=== PATIENT | female | born 1940 | race Caucasian/White ===

== ENCOUNTER → 2017-09-07 | Outpatient (CLI) | payer BC ==
[~2017-09-07] MED LIST: CALCTAB5 PO; COEN75CA PO; DIPH25CA37 PO; EVEN1000 PO; MAGN400T6 PO; MULT-506 PO; NUTR1000 PO
--- NOTE | 2017-09-07 15:58 | MAMMOGRAPHY REPORT ---
BILATERAL DIGITAL SCREENING MAMMOGRAM WITH CAD: 09/07/2017 TECHNIQUE: Current study was also evaluated with a Computer Aided Detection (CAD) system. Bilateral CC and MLO views were obtained. COMPARISON: Comparison is made to exams dated: 09/05/2016 mammogram, 09/03/2015 mammogram, 08/27/2014 mammogram, 08/22/2013 mammogram, 08/21/2012 mammogram, and 06/20/2010 mammogram - [facility]. BREAST COMPOSITION: There are scattered areas of fibroglandular density in both breasts. FINDINGS: No suspicious masses, calcifications, or areas of architectural distortion are noted in ei ther breast. There has been no significant interval change compared to prior exams. IMPRESSION: ACR BI-RADS CATEGORY 1: NEGATIVE There is no mammographic evidence of malignancy. A 1 year screening mammogram is recommended. The pa tient will receive written notification of the results. Approximately 10% of breast cancers are not detected with mammography. A negative mammographic report should not delay biopsy if a clinically suggestive mass is present. Julia Jackman M.D. ah/:09/07/2017 15:31:44 Medical Illustrator: Heather NAQVI(Sabina)(M), [facility] letter sent: Normal 1/2 BI-RADS Code: ACR BI-RADS Category 1: Negative
== END | disposition home or self-care (01) ==
LOC: C.MAMM 12:45
PROVIDERS: ATTEND Obstetrics & Gynecology
DX: Z12.31 Encounter for screening mammogram for malignant neoplasm of breast (principal)

== ENCOUNTER → 2017-11-22 | Outpatient (CLI) | payer BC | END | disposition home or self-care (01) | LOC: C.PAPS 09:36 | PROVIDERS: ATTEND Obstetrics & Gynecology | DX: Z12.4 Encounter for screening for malignant neoplasm of cervix (principal) ==

== ENCOUNTER → 2017-12-04 | Outpatient (CLI) | payer BC ==
[2017-12-04 15:11] LABS: ALBUMIN 3.5 gm/dl (3.4-5.0); ALT/SGPT 23 U/L (12-78); AST/SGOT 22 U/L (15-37); BLOOD UREA NITROGEN 17 mg/dl (7-18); CALCIUM 8.8 mg/dl (8.5-10.1); CARBON DIOXIDE 28 mmol/L (21-32); CREATININE 0.88 mg/dl (0.60-1.20); GLUCOSE 84 mg/dl (70-99); POTASSIUM 3.9 mmol/L (3.5-5.1); SODIUM 140 mmol/L (136-145)
[2017-12-04 15:22] LABS: ALKALINE PHOSPHATASE 74 U/L (45-117); CHOLESTEROL 213 mg/dl (0-200); LDL CHOLESTEROL CALCULATED 126 mg/dl; TOTAL PROTEIN 7.3 gm/dl (6.4-8.2)
== END | disposition home or self-care (01) ==
LOC: C.LAB 09:31
PROVIDERS: ATTEND Internal Medicine
DX: Z00.00 Encounter for general adult medical examination without abnormal findings (principal); E78.5 Hyperlipidemia, unspecified

== ENCOUNTER 2019-01-10 11:13 | Inpatient (IN) ==
[2019-01-10] MEDS ORDERED: OXYCODONE HCL IR 5 MG TAB (IMMEDIATE RELEASE) PO STA (11:40)
--- NOTE | 2019-01-10 11:47 | Emergency Department Note ---
ED Provider Note CHIEF COMPLAINT: Left wrist injury HISTORY OF PRESENT ILLNESS: This 78-year-old female presents the ER with chief complaint of left wrist injury. The patient states that she was walking her dog and another dog started barking and her dog took off and spun her around and she fell injuring her left wrist and scraping her right hand and right knee. The patient is able to walk without difficulty. The patient is right- hand dominant. She came immediately to the hospital. She has not taken anything for pain. The patient has not had anything to eat since last evening. She has no medical problems. She is not on any blood thinners. Patient has seen [facility] in the past for a shoulder dislocation. REVIEW OF SYSTEMS: 6 system review was performed and was negative unless stated otherwise in history of present illness. PMH: The patient is healthy; shoulder dislocation SOCIAL HISTORY: Patient lives with her GENERAL: Patient is alert oriented in no acute distress. EYES: PERRLA. EOMs intact. Funduscopic exam unremarkable. EARS: Canals clear. TMs without fluid level noted. NECK: Supple, no lymphadenopathy noted. No carotid bruits noted. LUNGS: Clear auscultation without wheezes rales or rhonchi. CARDIAC: Regular rate and rhythm without murmur. Pulses is full and equal throughout. ABDOMEN: Positive bowel sounds all 4 quadrants. Soft, nontender to palpation without organomegaly or masses. NEURO:Cranial nerves two through 12 intact. Cerebellar function intact with [id number]. Fine motor intact with alternating finger motions. RIGHT HAND: No gross bony deformity noted. There is superficial abrasions noted over the palmar aspect. Patient is able to move her fingers without difficulty. RIGHT KNEE: No gross bony deformity noted. No erythema or edema noted. Superficial abrasion noted over the patella without any deep cuts noted. No active bleeding. The wound looks clean. LEFT WRIST: Deformity noted of the distal forearm. The patient is able to move her fingers without difficulty. Sensation is intact. The patient has ecchymosis and swelling over the entire wrist joint. EMERGENCY DEPARTMENT COURSE: The patient was placed n.p.o. The patient was given OxyIR 5 mg p.o. X-ray of the left wrist was ordered interpreted by the radiologist and myself. DIAGNOSTICS:XR wrist LT min 3V routine CLINICAL HISTORY: fall, left wrist pain COMPARISON: None FINDINGS: Note is made of an acute comminuted mildly displaced distal left radial fracture with intra-articular extension. There is no acute distal left ulnar fracture. Carpal bones are intact. A ring on the fourth finger is present. IMPRESSION: Acute comminuted mildly displaced distal left radial fracture with intra-articular extension. Electronically signed by: Shyam Parker M.D. 01/10/2019 12:18 PM Dictated: 01/10/19 1216 Transcribed: 01/10/19 1216 The patient was informed of the findings. The patient was independently evaluated by Dr. Guevara who agrees with treatment plan. Dr. Torres was consulted and wanted me to order a CT of the wrist. CT of the wrist was ordered interpreted by the radiologist. DIAGNOSTICS:CT OF THE LEFT WRIST WITHOUT CONTRAST CLINICAL HISTORY: Fall/fracture radius. COMPARISON STUDY: Left wrist radiographs performed earlier today. TECHNIQUE: Axial images of the left wrist were obtained without IV contrast. Sagittal and coronal reconstructions were performed as well as 3-D volume rendering. Study was performed utilizing automated exposure control for dose reduction and according to ALARA principles. FINDINGS: Note is made of an acute comminuted mildly displaced distal right radial fracture with intra-articular extension and volar tilt of the distal component. Fracture is displaced up to 6 mm. No carpal bone fracture is noted. There is no acute fracture of the distal left ulna. Soft tissue edema/ hemorrhage is noted. No metacarpal fracture is identified. No fractures are identified within visualized portions of the phalanges. IMPRESSION: Acute comminuted mildly displaced distal left radial fracture with intra-articular extension and volar tilt of the distal component. Electronically signed by: Shyam Parker M.D. Patient was informed of the findings. Dr. Torres will be taking the patient to the OR therefore preop testing was obtained. This includes CBC and differential , metabolic profile, coags, chest x-ray and EKG. labs are reviewed and were unremarkable. The patient was taken to the OR. DIAGNOSIS: Comminuted displaced left distal radius fracture Attending Attestation: Shaye Guevara MD independently saw and evaluated this patient and agree with history and physical is otherwise documented by the physician gynecological assistant. See their note for full details. Impression & Plan Fracture of radius Past Med/Surg History Medical History No significant medical problems No significant past surgical history Normal colonoscopy Surgical History History of colonoscopy History of root canal procedure Family History Other Family history non-contributory Social History marital status: Current Living Situation: Spouse current occupational status: retired Feels Safe at Home: Yes Smoking Status: Never smoker Hx Alcohol Use: Yes (1 small glass of wine a week) Preferred Language: Georgian Communication Ability: Effective Visual Impairment: No Limitations Hearing Ability: Normal Results & Data Vital Signs Vital Signs - 24 hr 01/10/19 11:16 01/10/19 13:17 01/10/19 15:12 Temperature 36.3 C L Temperature Source Oral Sepsis Recent Fever Within 48 Hours No Sepsis New/Unexplained Change in Mental Status No Sepsis Action Taken by Nursing No Action Required Pulse Rate 73 Pulse Rate [Finger] 66 91 H Respiratory Rate 16 17 16 Blood Pressure 160/80 H Blood Pressure [Right Arm] 175/89 H 198/106 H Blood Pressure Mean 106 Blood Pressure Mean [Right Arm] 117 136 Blood Pressure Position [Right Arm] Sitting Pulse Oximetry 97 98 99 Oxygen Delivery Method Room Air Room Air Laboratory Data Result diagrams: 01/10/19 13:55 01/10/19 13:55 Lab Results 01/10/19 01/10/19 01/10/19 Range/Units 13:55 13:55 13:55 WBC 9.09 (4.8-10.8) K/uL RBC 4.81 (4.2-5.4) M/uL Hgb 15.2 (12.0-16.0) g/dL Hct 44.4 (37-47) % MCV 92.3 (80-100) fL MCH 31.6 (25-34) pg MCHC 34.2 (32-36) g/dL RDW Std Deviation 42.4 (36.4-46.3) fL RDW Coeff of Maurilio 12.6 (11.5-14.5) % Plt Count 223 (130-400) K/uL MPV 10.2 (7.4-10.4) fL Immature Gran % (Auto) 0.1 % Neut % (Auto) 71.8 % Lymph % (Auto) 22.1 % Estill % (Auto) 5.2 % Eos % (Auto) 0.4 % Baso % (Auto) 0.4 % Immature Gran # (Auto) 0.01 (0.00-0.02) K/uL Neut # (Auto) 6.52 H (1.4-6.5) K/uL Lymph # (Auto) 2.01 (1.2-3.4) K/uL Estill # (Auto) 0.47 (0.11-0.59) K/uL Eos # (Auto) 0.04 (0-0.5) K/uL Baso # (Auto) 0.04 (0-0.2) K/uL PT Cancelled INR Cancelled Sodium 139 (136-145) mmol/L Potassium 4.1 (3.5-5.1) mmol/L Chloride 108 H (98-107) mmol/L Carbon Dioxide 25 (21-32) mmol/L Anion Gap 6.0 (3-11) BUN 18 (7-18) mg/dl Creatinine 1.06 (0.6-1.2) mg/dl Est Cr Clr Drug Dosing 45.0 ml/min Est GFR ( Amer) 59.1 Est GFR (Non-Af Amer) 51.0 BUN/Creatinine Ratio 16.7 (10-20) Glucose 88 (70-99) mg/dl Calcium 9.0 (8.5-10.1) mg/dl Total Bilirubin 0.7 (0.2-1) mg/dl AST 31 (15-37) U/L ALT 29 (12-78) U/L Alkaline Phosphatase 93 (45-117) U/L Total Protein 8.2 (6.4-8.2) gm/dl Albumin 3.9 (3.4-5.0) gm/dl Globulin 4.3 H (2.5-4.0) gm/dl Albumin/Globulin Ratio 0.9 (0.9-2) Specimen Hemolysis 01/10/19 Range/Units 14:37 WBC (4.8-10.8) K/uL RBC (4.2-5.4) M/uL Hgb (12.0-16.0) g/dL Hct (37-47) % MCV (80-100) fL MCH (25-34) pg MCHC (32-36) g/dL RDW Std Deviation (36.4-46.3) fL RDW Coeff of Maurilio (11.5-14.5) % Plt Count (130-400) K/uL MPV (7.4-10.4) fL Immature Gran % (Auto) % Neut % (Auto) % Lymph % (Auto) % [place]ill % (Auto) % Eos % (Auto) % Baso % (Auto) % Immature Gran # (Auto) (0.00-0.02) K/uL Neut # (Auto) (1.4-6.5) K/uL Lymph # (Auto) (1.2-3.4) K/uL Estill # (Auto) (0.11-0.59) K/uL Eos # (Auto) (0-0.5) K/uL Baso # (Auto) (0-0.2) K/uL PT 10.7 INR 1.1 Sodium (136-145) mmol/L Potassium (3.5-5.1) mmol/L Chloride (98-107) mmol/L Carbon Dioxide (21-32) mmol/L Anion Gap (3-11) BUN (7-18) mg/dl Creatinine (0.6-1.2) mg/dl Est Cr Clr Drug Dosing ml/min Est GFR ( Amer) Est GFR (Non-Af Amer) BUN/Creatinine Ratio (10-20) Glucose (70-99) mg/dl Calcium (8.5-10.1) mg/dl Total Bilirubin (0.2-1) mg/dl AST (15-37) U/L ALT (12-78) U/L Alkaline Phosphatase (45-117) U/L Total Protein (6.4-8.2) gm/dl Albumin (3.4-5.0) gm/dl Globulin (2.5-4.0) gm/dl Albumin/Globulin Ratio (0.9-2) Specimen Hemolysis Administered Medications Discontinued Medications Oxycodone HCl (Roxicodone Immediate Rel) 5 mg PO NOW STA Stop: 01/10/19 11:41 Last Admin: 01/10/19 11:48 Dose: 5 mg Discharge Plan Visit Data Chief Complaint: Arm Pain Stated Complaint: FALL LEFT ARM PAIN ED Provider: Hiren Guevara ED Midlevel Provider: Cheri Gloria Discharge Problem: Fracture of radius Patient Disposition: Being Evaluated by Surgeon Condition: Good Forms Stand Alone Forms: My [employer] Prescriptions Prescriptions: No Action evening primrose oil 500 mg Capsule 500 mg PO QAM RF: 0 multivitamin Capsule 1 cap PO BID17 RF: 0 coenzyme Q10 [CoQ-10] 100 mg Capsule 100 mg PO BID17 RF: 0 acetaminophen [Tylenol] 325 mg Capsule 650 mg PO Q6H PRN (Reason: Pain) RF: 0 salmon oil-omega-3 fatty acids [[place] Oil-1000] 1,000-200 mg Capsule 1 cap PO BID17 RF: 0 calcium carbonate-vitamin D3 [Caltrate 600 + D] 600 mg (1,500 mg)-800 unit Tablet,Chewable 1 tab PO BID RF: 0 Buffered Magnesium Chelate 2 cap PO PM RF: 0 Referrals Referrals: Kayode Matias MD [Primary Care Provider] -
--- NOTE | 2019-01-10 12:19 | XRay Report ---
XR wrist LT min 3V routine CLINICAL HISTORY: fall, left wrist pain COMPARISON: None FINDINGS: Note is made of an acute comminuted mildly displaced distal left radial fracture with intr a-articular extension. There is no acute distal left ulnar fracture. Carpal bones are intact. A ring on the fourth finger is present. IMPRESSION: Acute comminuted mildly displaced distal left radial fracture with intra-articular extens ion. Electronically signed by: Shyam Parker M.D. 01/10/2019 12:18 PM
--- NOTE | 2019-01-10 13:20 | CT Scan Report ---
CT OF THE LEFT WRIST WITHOUT CONTRAST CLINICAL HISTORY: Fall/fracture radius. COMPARISON STUDY: Left wrist radiographs performed earlier today. TECHNIQUE: Axial images of the left wrist were obtained without IV contrast. Sagittal and coronal rec onstructions were performed as well as 3-D volume rendering. Study was performed utilizing automated exposure control for dose reduction and according to ALARA principles. FINDINGS: Note is made of an acute comminuted mildly displaced distal right radial fracture with intr a-articular extension and volar tilt of the distal component. Fracture is displaced up to 6 mm. No ca rpal bone fracture is noted. There is no acute fracture of the distal left ulna. Soft tissue edema/he morrhage is noted. No metacarpal fracture is identified. No fractures are identified within visualize d portions of the phalanges. IMPRESSION: Acute comminuted mildly displaced distal left radial fracture with intra-articular exten angel and volar tilt of the distal component. Electronically signed by: Shyam Parker M.D. 01/10/2019 1:18 PM
[2019-01-10 14:07] LABS: Basophils # (auto) 0.04 K/uL (0-0.2); Basophils % (auto) 0.4 %; Eosinophils # (auto) 0.04 K/uL (0-0.5); Eosinophils % (auto) 0.4 %; Hematocrit (blood only) 44.4 % (37-47); Hemoglobin 15.2 g/dL (12.0-16.0); Immature Granulocytes # (auto) 0.01 K/uL (0.00-0.02); Immature Granulocytes % (auto) 0.1 %; Lymphocytes # (auto) 2.01 K/uL (1.2-3.4); Lymphocytes % (auto) 22.1 %; Mean Corpuscular Hgb Conc 34.2 g/dL (32-36); Mean Corpuscular Volume 92.3 fL (80-100); Mean Platelet Volume 10.2 fL (7.4-10.4); Monocytes # (auto) 0.47 K/uL (0.11-0.59); Monocytes % (auto) 5.2 %; Neutrophils # (auto) 6.52 K/uL (1.4-6.5); Neutrophils % (auto) 71.8 %; Platelet Count 223 K/uL (130-400); RDW Coefficient of Variation 12.6 % (11.5-14.5); RDW Standard Deviation 42.4 fL (36.4-46.3); Red Blood Count 4.81 M/uL (4.2-5.4); White Blood Count 9.09 K/uL (4.8-10.8)
[2019-01-10 14:31] LABS: Albumin Level 3.9 gm/dl (3.4-5.0); BUN Creatinine Ratio 16.7 (10-20); Est GFR (African American) 59.1; Potassium 4.1 mmol/L (3.5-5.1)
--- NOTE | 2019-01-10 14:38 | History & Physical Report ---
Date of Service January 10, 2019 Assessment & Plan (1) History of colonoscopy: Present on Admission?: No (2) History of root canal procedure: Present on Admission?: No (3) Fracture of left distal radius: Patient will be taken to surgery today by Dr. Torres for ORIF of the left distal radius fracture. History of Present Illness Chief Complaint: Left wrist pain Primary Care Provider: Kayode Matias MD Patient is a 78-year-old white female who was walking her dog this morning. He states that another dog caught the attention of her dog. Her dog started to run towards the other dog spitting the patient around causing her to lose her balance. She fell to the ground onto her right arm. She had immediate pain in the right arm and a small deformity. She denies tonus of breath, chest pain, lightheadedness prior to or after the fall. She denies loss of consciousness. She was brought into the emergency room and was seen by the staff. X-rays were taken and was found that she had a distal radius fracture. Dr Torres reviewed the films and found that it was going to need an ORIF of the distal radius. Patient had not eaten since 7:00 yesterday evening. It was decided to have her undergo ORIF of the distal radius this afternoon. Allergies Allergy/AdvReac Type Severity Reaction Status Date / Time fluconazole AdvReac Rash Unverified 01/10/19 12:27 Home Medications Home Medications Medication Instructions Recorded Confirmed Type Buffered Magnesium Chelate 2 cap PO PM 01/10/19 01/10/19 History acetaminophen [Tylenol] 650 mg PO Q6H PRN 01/10/19 01/10/19 History calcium carbonate-vitamin D3 1 tab PO BID 01/10/19 01/10/19 History [Caltrate 600 + D] coenzyme Q10 [CoQ-10] 100 mg PO BID17 01/10/19 01/10/19 History evening primrose oil 500 mg PO QAM 01/10/19 01/10/19 History multivitamin 1 cap PO BID17 01/10/19 01/10/19 History salmon oil-omega-3 fatty acids 1 cap PO BID17 01/10/19 01/10/19 History [[place] Oil-1000] Past Med/Surg History Medical History No significant medical problems No significant past surgical history Normal colonoscopy Surgical History History of colonoscopy History of root canal procedure Family History Other Family history non-contributory Social History marital status: Current Living Situation: Spouse current occupational status: retired Feels Safe at Home: Yes Smoking Status: Never smoker Hx Alcohol Use: Yes (1 small glass of wine a week) Preferred Language: Malawian Communication Ability: Effective Visual Impairment: No Limitations Hearing Ability: Normal Review of Systems Denies any recent fevers, chills, night sweats, unexplained weight loss or weight gain; no flu or cold-like symptoms of recent. No increased cough or sputum production. Denies chest pain, chest pressure, irregular heartbeat, heart disease. Denies shortness of breath on exertion or at rest. Denies asthma, bronchitis, pneumonia, tuberculosis, hemoptysis. Denies unusual abdominal pain, unusual nausea or vomiting, diarrhea, hematemesis, melena, hematochezia, hepatitis, peptic ulcer disease, reflux. No history of unusual or frequent urinary tract infections, hematuria, pyuria, dysuria, renal calculi. Denies any history of migraine headache, seizure disorder, CVA, TIA Physical Exam 2 Vital Signs (Past 24 Hours): Last Vital Signs Temp 36.3 C L 01/10/19 11:16 Pulse 66 01/10/19 13:17 Resp 17 01/10/19 13:17 BP 175/89 H 01/10/19 13:17 Pulse Ox 98 01/10/19 13:17 Constitutional: WD/WN, vitals as above Eyes: PERRL, conjunctivae normal, anicteric sclerae ENMT: external ear and nose normal, oropharynx normal Neck: trachea midline, no thyromegaly Supple without bruits Respiratory: normal respiratory effort, lungs clear to auscultation Cardiovascular: RRR, no murmur, no edema Gastrointestinal (Abdomen): normal bowel sounds, soft, nontender, no hepatosplenomegaly Musculoskeletal: On examination of the patient's left wrist, she has a mild deformity noted. Capillary refill is less than 2 seconds of the fingers and she has the ability to move her fingers at this time. Denies any decreased sensation to the fingers at this time. Mild swelling at the wrist. Tenderness on palpation of the wrist. Denies any tenderness on palpation of the forearm going proximally and denies any elbow pain at this time. She has good range of motion of her left elbow as well as her left shoulder without tenderness. Right upper extremity is essentially benign at this time and has good range of motion at the shoulder elbow and wrist without pain. She does have an abrasion on the right knee with mild tenderness but otherwise lower extremities are unaffected at this time. No gross motor or sensory loss seen at this time other than due to fracture with decreased range of motion of the left wrist. Pulses equal bilaterally of the upper land lower extremities. Skin: no rashes, warm and dry Abrasion on right knee as noted above. Results & Data Diagnostic Findings XR wrist LT min 3V routine CLINICAL HISTORY: fall, left wrist pain COMPARISON: None FINDINGS: Note is made of an acute comminuted mildly displaced distal left radial fracture with intra-articular extension. There is no acute distal left ulnar fracture. Carpal bones are intact. A ring on the fourth finger is present. IMPRESSION: Acute comminuted mildly displaced distal left radial fracture with intra-articular extension.
[2019-01-10 14:47] LABS: Albumin Globulin Ratio 0.9 (0.9-2); Bilirubin,Total 0.7 mg/dl (0.2-1); Globulin 4.3 gm/dl (2.5-4.0); Total Protein 8.2 gm/dl (6.4-8.2)
[2019-01-10 15:02] LABS: INR 1.1 (0.9-1.1); Prothrombin Time 10.7 Seconds (9.0-12.0)
--- NOTE | 2019-01-10 15:15 | Anesthesiology Consultation ---
Date of Service January 10, 2019 Assessment & Plan (1) Encounter for pre-operative examination: Chart Review Chart Review: Acceptable Risk for Surgery NPO Date Last Intake of Fluids: 01/09/15 Time Last Intake of Fluids: 19:00 Date Last Intake of Solids: 01/09/15 Time Last Intake of Solids: 19:00 History Surgery Operation Date: 01/10/19 13:40 Proposed Procedures p Left Distal Radius Fracture Open Reduction Internal Fixation - Franklyn Torres DO Height/Weight Height: 5 ft 5 in Weight: 72.5 kg Allergies Allergy/AdvReac Type Severity Reaction Status Date / Time fluconazole AdvReac Rash Unverified 01/10/19 12:27 Medications Home Medications Medication Instructions Recorded Confirmed Last Taken Buffered Magnesium Chelate 2 cap PO PM 01/10/19 01/10/19 01/09/19 17:00 acetaminophen [Tylenol] 650 mg PO Q6H PRN 01/10/19 01/10/19 01/09/19 11:00 calcium carbonate-vitamin D3 1 tab PO BID 01/10/19 01/10/19 01/09/19 17:00 [Caltrate 600 + D] coenzyme Q10 [CoQ-10] 100 mg PO BID17 01/10/19 01/10/19 01/09/19 17:00 evening primrose oil 500 mg PO QAM 01/10/19 01/10/19 01/09/19 multivitamin 1 cap PO BID17 01/10/19 01/10/19 01/09/19 17:00 salmon oil-omega-3 fatty acids 1 cap PO BID17 01/10/19 01/10/19 01/09/19 17:00 [[place] Oil-1000] Past Medical History Medical History No significant medical problems No significant past surgical history Normal colonoscopy Past Family History Family History Other Family history non-contributory Past Surgical History Surgical History History of colonoscopy History of root canal procedure Social History Smoking Status: Never smoker Hx Alcohol Use: Yes (1 small glass of wine a week) Physical Exam Vital Signs Last Vital Signs Temp 36.3 C L 01/10/19 11:16 Pulse 91 H 01/10/19 15:12 Resp 16 01/10/19 15:12 BP 198/106 H 01/10/19 15:12 Pulse Ox 99 01/10/19 15:12 Testing Electrocardiogram Date: 01/10/19 Findings: + NSR @ (76) and + poor R wave progression Laboratory Results 01/10/19 13:55 01/10/19 13:55 PT 10.7 Seconds (9.0-12.0) 01/10/19 14:37 INR 1.1 (0.9-1.1) 01/10/19 14:37
[2019-01-10] MEDS ORDERED: ATROPINE SULFATE 0.1 MG/ML 10ML SYR IV PRN (16:13)
[2019-01-10] MEDS ORDERED: KETOROLAC TROMETHAMINE 15 MG/ML VIAL IV PRN (16:13)
[2019-01-10] MEDS ORDERED: LIDOCAINE HCL 2% 2 ML VIAL/AMP(20MG/ML) INFIL ONE (16:14)
[2019-01-10] MEDS ORDERED: DEXAMETHASONE SOD INJ 4 MG/ML VIAL ONE (16:14)
[2019-01-10] MEDS ORDERED: fentaNYL citrate 100 MCG/2 ML VIAL ONE ×2 (16:14→17:16)
[2019-01-10] MEDS ORDERED: MIDAZOLAM HCL 1 MG/ML 2ML VIAL ONE (16:14)
[2019-01-10] MEDS ORDERED: PROPOFOL IV EMULSION 10 MG/ML 20 ML VIAL IV ONE (16:14)
[2019-01-10] MEDS ORDERED: ONDANSETRON INJ 2 MG/ML 2 ML VIAL ONE (16:14)
[2019-01-10] MEDS ORDERED: BUPIVACAINE 0.5 % 5 MG/1 ML MPF 30ML VIAL ONE (16:21)
[2019-01-10] MEDS ORDERED: CEFAZOLIN 2000MG 2,000 MG/15 ML SYR IV SCH (16:30)
[2019-01-10] MEDS ORDERED: CEFAZOLIN 2,000 MG/15 ML IV PUSH IV ONE (16:30)
--- NOTE | 2019-01-10 16:32 | History & Physical Bridge Note ---
Date of Service January 10, 2019 History & Physical Bridge Note I have examined the patient, reviewed the History & Physical and in the interval since the performance of the History & Physical I have noted the following changes of clinical significance: no changes noted
[2019-01-10] MEDS ORDERED: BACITRACIN INJ 50,000 UNIT VIAL ONE (17:01)
[2019-01-10] MEDS ORDERED: ePHEDrine sulfate 50 MG/ML SYR ONE (17:13)
[2019-01-10] MEDS ORDERED: GLYCOPYRROLATE 0.2 MG/ML VIAL ONE (17:13)
[2019-01-10] MEDS ORDERED: KETOROLAC 30 MG/ML VIAL ONE (17:37)
--- NOTE | 2019-01-10 18:19 | Post Operative Brief Note ---
Immediate Post Op Note v1 Date of Surgery January 10, 2019 Pre & Post Diagnosis Operation Date: 01/10/19 13:40 Pre-Op Diagnosis: Displaced intraarticular 3-part distal left radial fracture Post-Op Diagnosis: Displaced intraarticular 3-part distal left radial fracture Procedure Operation Date: 01/10/19 13:40 Actual Procedures p Left Distal Radius Fracture Open Reduction Internal Fixation displaced 3-part intraarticular (Left) - Franklyn Torres DO Surgeon Franklyn Torres DO Drilling Manager Naveen Dc PA-C Estimated Blood Loss 2 Findings Consistent with Post-Op Diagnosis Specimens None Anesthesia Type General Regional Complications none Disposition Accompanied Patient To Recovery: No Disposition: Recovery Room
[2019-01-10] MEDS ORDERED: HYDROmorphone INJ 1 MG/ML SYRINGE IV PRN (18:22)
[2019-01-10] MEDS ORDERED: ONDANSETRON INJ 2 MG/ML 2 ML VIAL IV PRN ×2 (18:22→22:16)
--- NOTE | 2019-01-10 18:39 | Fluoroscopy Report ---
FL wrist LT 2V CLINICAL HISTORY: Wrist fracture. COMPARISON STUDY: Conventional radiographic study dated 01/10/2019 FLUOROSCOPY TIME: 59 seconds. NUMBER OF FLUOROSCOPIC IMAGES: 2 FINDINGS: 2 intraoperative fluoroscopic spot images reveal internal fixation of the previous describe d distal radial fracture with a T-shaped metallic plate and multiple screws. IMPRESSION: Internally fixated distal radial fracture Electronically signed by: Iggy Tobin M.D. 01/10/2019 6:38 PM
[2019-01-10] MEDS: fentaNYL citrate 100 MCG/2 ML VIAL IV PRN ×4 (18:55→19:13)
[2019-01-10] MEDS ORDERED: HYDROmorphone INJ 1 MG/ML SYRINGE ONE (19:18)
[2019-01-10] MEDS: HYDROmorphone INJ 1 MG/ML SYRINGE IV PRN ×4 (19:19→21:37)
[2019-01-10] MEDS: LABETALOL HCL IV 5 MG/ML 20ML IV PRN ×4 (19:49→20:44)
[2019-01-10] MEDS ORDERED: LABETALOL HCL IV 5 MG/ML 20ML IV PRN ×2 (20:26→20:40)
[2019-01-10] MEDS ORDERED: HydrALAZINE HCL 20 MG/ML VIAL IV ONE ×2 (21:07→21:29)
[2019-01-10] MEDS ORDERED: HydrALAZINE HCL 20 MG/ML VIAL ONE (21:08)
[2019-01-10] MEDS ORDERED: SODIUM CHLORIDE 0.9% 1000ML 1,000 ML IV SCH (22:16)
[2019-01-10] MEDS ORDERED: NALOXONE HCL 0.4 MG/1 ML VIAL/CARP IV PRN (22:16)
[2019-01-10] MEDS ORDERED: OXYCODONE HCL IR 5 MG TAB (IMMEDIATE RELEASE) PO PRN (22:16)
[2019-01-10] MEDS ORDERED: MAGNESIUM HYDROXIDE SUSP 30 ML UDC PO PRN (22:16)
[2019-01-10] MEDS ORDERED: BISACODYL 10 MG SUPP PR PRN (22:16)
[2019-01-10] MEDS ORDERED: HYDROmorphone INJ 0.5 MG/0.5 ML SYR IV PRN (22:16)
--- NOTE | 2019-01-10 22:54 | Anesthesiology Progress Note ---
Date of Service January 10, 2019 Anesthesia Post Procedure Vital Signs Vital Signs: Temp Pulse Pulse Pulse Resp BP BP 01/10/19 22:46 75 16 161/75 H 01/10/19 22:24 36.8 C 85 18 163/79 H 01/10/19 21:45 37.2 C 81 16 164/81 H 01/10/19 21:40 37.2 C 80 15 171/86 H 01/10/19 21:30 68 15 186/88 H 01/10/19 21:20 71 15 183/83 H 01/10/19 21:10 73 15 197/94 H 01/10/19 21:00 74 16 194/89 H 01/10/19 20:50 68 16 182/88 H 01/10/19 20:40 71 16 190/89 H 01/10/19 20:30 71 16 171/99 H 01/10/19 20:20 74 16 191/103 H 01/10/19 20:10 74 16 190/96 H 01/10/19 20:00 72 16 186/92 H 01/10/19 19:50 75 16 178/88 H 01/10/19 19:40 83 16 190/83 H 01/10/19 19:30 84 16 192/88 H 01/10/19 19:20 85 16 181/103 H 01/10/19 19:10 84 16 179/86 H 01/10/19 19:00 84 16 180/84 H 01/10/19 18:50 85 16 182/92 H 01/10/19 18:40 80 16 174/77 H 01/10/19 18:30 89 15 174/96 H 01/10/19 18:24 36.3 C L 86 15 145/84 H 01/10/19 16:13 36.8 C 71 18 188/92 H 01/10/19 15:35 75 18 191/82 H 01/10/19 15:12 91 H 16 198/106 H 01/10/19 13:17 66 17 175/89 H 01/10/19 11:16 36.3 C L 73 16 160/80 H Pulse Ox 01/10/19 22:46 95 01/10/19 22:24 97 01/10/19 21:45 95 01/10/19 21:40 95 01/10/19 21:30 97 01/10/19 21:20 93 01/10/19 21:10 95 01/10/19 21:00 97 01/10/19 20:50 96 01/10/19 20:40 96 01/10/19 20:30 96 01/10/19 20:20 97 01/10/19 20:10 97 01/10/19 20:00 98 01/10/19 19:50 98 01/10/19 19:40 98 01/10/19 19:30 97 01/10/19 19:20 97 01/10/19 19:10 99 01/10/19 19:00 99 01/10/19 18:50 99 01/10/19 18:40 99 01/10/19 18:30 99 01/10/19 18:24 99 01/10/19 16:13 95 01/10/19 15:35 99 01/10/19 15:12 99 01/10/19 13:17 98 01/10/19 11:16 97 Pain Intensity Left Arm: Pain Intensity: 3 Notes Mental Status: alert / awake / arousable and participated in evaluation Patient Amnestic to Procedure: Yes Nausea / Vomiting: adequately controlled Pain: adequately controlled Airway Patency, RR, SpO2: stable & adequate BP & HR: stable & adequate Hydration State: stable & adequate Anesthetic Complications: no major complications apparent and Pt Satisfied with anesthetic care
[2019-01-10] MEDS: ACETAMINOPHEN 500 MG TAB PO SCH (23:57)
[2019-01-10] MEDS: CALCIUM 600MG + VIT D 400 IU TAB PO SCH (23:58)
[2019-01-11] MEDS: CEFAZOLIN 1000MG 1,000 MG/7.5 ML SYR IV SCH ×2 (00:01→07:57)
--- NOTE | 2019-01-11 02:02 | Operative Report ---
DATE OF OPERATION: 01/10/2019 PREOPERATIVE DIAGNOSES: Left displaced 3-part intra-articular distal radius fracture (volar Henson fracture). POSTOPERATIVE DIAGNOSES: Left displaced 3-part intra-articular distal radius fracture (volar Henson fracture). PROCEDURE: Open reduction internal fixation left intraarticular displaced 3-part distal radius fracture with application of Synthes volar locking plate. SURGEON: Franklyn Torres DO LINTER SAW SHARPENER: CATALINO Estrada who was present for patient positioning, sterile prep and drape, management of retractors and instruments. He was present through the critical portions of the case including wound closure, application of sterile dressing and transport of the patient to recovery. ANESTHESIA: General regional. SPECIMENS: None. DRAINS: None. COMPLICATIONS: None. BLOOD LOSS: 2 mL. PERTINENT HISTORY: This is a 78-year-old female who had sustained a fall on an outstretched left upper extremity. She had immediate pain and deformity with associated bruising. She was seen in the Emergency Department. Radiographs and CT scan were obtained, noting a displaced intraarticular 3-part volar Henson type fracture. The patient was then scheduled for surgery as indicated. All potential risks, benefits, complications, alternatives, rehab, potential risk for incomplete relief, need for further surgery, deep venous thrombosis, pulmonary embolism, , nonunion, malunion, hardware breakage and bone fracture were discussed with the patient. The patient decided to proceed with the procedure as indicated. DESCRIPTION OF PROCEDURE: The patient was taken to the Operative Suite and placed supine on the Operating Room table. I reviewed consent and identification of operative site. The patient was anesthetized, LMA was placed. Tourniquet was placed high on the left upper extremity over cast padding. Left upper extremity was then sterilely prepped and draped in the usual fashion, elevated and exsanguinated with Esmarch bandage, tourniquet inflated to 250 mmHg. Next, a 15 blade scalpel was used to make an incision along the radial border of the flexor carpi radialis of the distal aspect of the forearm. The incision was deepened through subcutaneous tissue. Meticulous hemostasis was achieved with electrocautery. Full thickness skin flaps were developed. Sensory cutaneous nerves retracted and protected with a Weitlaner when possible. Fascia was incised with a 15 blade scalpel. The neurovascular bundle was identified, carefully dissected free and retracted radialward with a retractor and the pronator quadratus was then identified and along its radial border was incised with 15 blade scalpel and then sharply elevated from the volar aspect of the distal radius, revealing the fracture. Next, the fracture was then carefully opened with a dental pick and then irrigated with sterile normal saline until clear. The fracture was then carefully reduced using combination of traction, use of a Hohmann retractor and use of a Kimberton elevator and dental pick to achieve near anatomic reduction. Next, this provisional fixation was provided with 0.045 inch wires x2 from volar to dorsal. Reduction was confirmed under live fluoroscopic assistance. Then, a Synthes locking volar plate was then provisionally fixed to the volar aspect of the distal radius using a nonlocking gliding screw to compress the fracture in a near anatomic position and then multiple locking screws then placed first distally and then along the proximal shaft of the plate, stabilizing the fracture into near anatomic position for reduction and fixation. This was confirmed under live fluoroscopic assistance. The K wires were removed and then final irrigation was performed with sterile normal saline. Final radiographs were obtained, AP and lateral projections followed by closure of the pronator quadratus with interrupted 3-0 Vicryl. The dermis was then closed using buried interrupted 3-0 Vicryl and skin was closed using 4-0 nylon sutures. The incision site was infiltrated with 0.5% Marcaine plain, approximately 20 mL. Next, a sterile compressive dressing and volar splint were applied, overwrapped with Romero wrap. The tourniquet was released. The patient was awakened and taken to Recovery in a stable condition. I attest to the content of the Intraoperative Record and any orders documented therein. Any exception s are noted below.
[2019-01-11] MEDS: ACETAMINOPHEN 500 MG TAB PO SCH (05:31)
--- NOTE | 2019-01-11 08:15 | Orthopedic Progress Note ---
Date of Service January 11, 2019 Assessment & Plan (1) Fracture of left distal radius: 78 yo female stable POD #1 s/p ORIF left distal radius 1. D/C home today Subjective Pt sitting in chair, pain controlled, denies complaints Physical Exam 2 Vital Signs (Past 24 Hours): Last Vital Signs Temp 36.6 C 01/11/19 07:11 Pulse 75 01/11/19 07:11 Resp 18 01/11/19 07:11 BP 153/70 H 01/11/19 07:11 Pulse Ox 95 01/11/19 07:11 Physical Exam: Splint/dressing intact, fingers mobile
--- NOTE | 2019-01-11 08:46 | Anesthesiology Progress Note ---
Date of Service January 11, 2019 Anesthesia Post Procedure Vital Signs Vital Signs: Temp Pulse Pulse Pulse Resp BP BP 01/11/19 07:11 36.6 C 75 18 153/70 H 01/11/19 03:46 36.6 C 79 18 130/70 01/11/19 01:10 36.6 C 74 18 126/65 01/11/19 00:10 36.6 C 78 18 143/70 H 01/10/19 23:40 36.4 C L 78 18 132/72 01/10/19 22:46 75 16 161/75 H 01/10/19 22:24 36.8 C 85 18 163/79 H 01/10/19 21:45 37.2 C 81 16 164/81 H 01/10/19 21:40 37.2 C 80 15 171/86 H 01/10/19 21:30 68 15 186/88 H 01/10/19 21:20 71 15 183/83 H 01/10/19 21:10 73 15 197/94 H 01/10/19 21:00 74 16 194/89 H 01/10/19 20:50 68 16 182/88 H 01/10/19 20:40 71 16 190/89 H 01/10/19 20:30 71 16 171/99 H 01/10/19 20:20 74 16 191/103 H 01/10/19 20:10 74 16 190/96 H 01/10/19 20:00 72 16 186/92 H 01/10/19 19:50 75 16 178/88 H 01/10/19 19:40 83 16 190/83 H 01/10/19 19:30 84 16 192/88 H 01/10/19 19:20 85 16 181/103 H 01/10/19 19:10 84 16 179/86 H 01/10/19 19:00 84 16 180/84 H 01/10/19 18:50 85 16 182/92 H 01/10/19 18:40 80 16 174/77 H 01/10/19 18:30 89 15 174/96 H 01/10/19 18:24 36.3 C L 86 15 145/84 H 01/10/19 16:13 36.8 C 71 18 188/92 H 01/10/19 15:35 75 18 191/82 H 01/10/19 15:12 91 H 16 198/106 H 01/10/19 13:17 66 17 175/89 H 01/10/19 11:16 36.3 C L 73 16 160/80 H Pulse Ox 01/11/19 07:11 95 01/11/19 03:46 95 01/11/19 01:10 95 01/11/19 00:10 97 01/10/19 23:40 97 01/10/19 22:46 95 01/10/19 22:24 97 01/10/19 21:45 95 01/10/19 21:40 95 01/10/19 21:30 97 01/10/19 21:20 93 01/10/19 21:10 95 01/10/19 21:00 97 01/10/19 20:50 96 01/10/19 20:40 96 01/10/19 20:30 96 01/10/19 20:20 97 01/10/19 20:10 97 01/10/19 20:00 98 01/10/19 19:50 98 01/10/19 19:40 98 01/10/19 19:30 97 01/10/19 19:20 97 01/10/19 19:10 99 01/10/19 19:00 99 01/10/19 18:50 99 01/10/19 18:40 99 01/10/19 18:30 99 01/10/19 18:24 99 01/10/19 16:13 95 01/10/19 15:35 99 01/10/19 15:12 99 01/10/19 13:17 98 01/10/19 11:16 97 Pain Intensity Left Arm: Pain Intensity: 3 Notes Mental Status: alert / awake / arousable Patient Amnestic to Procedure: Yes Nausea / Vomiting: adequately controlled Pain: adequately controlled Airway Patency, RR, SpO2: stable & adequate BP & HR: stable & adequate Hydration State: stable & adequate Anesthetic Complications: no major complications apparent and Pt Satisfied with anesthetic care
[2019-01-11] MEDS ORDERED: NON-FORMULARY MEDICATION (Coenzyme Q10 [Coq-10] 100 MG) PO SCH (09:00)
[2019-01-11] MEDS ORDERED: MULTIVITAMIN TAB PO SCH (09:00)
[2019-01-11] MEDS: CALCIUM 600MG + VIT D 400 IU TAB PO SCH (09:14)
--- NOTE | 2019-01-20 07:59 | Discharge Summary ---
DISCHARGE DIAGNOSIS: Left displaced 3-part intra-articular distal radius fracture. CONSULTS: None. COMPLICATIONS: None. PROCEDURES: ORIF of left 3-part distal radius fracture by Dr. Torres on 01/10/2019. BRIEF HISTORY: As dictated in the history and physical. HOSPITAL SUMMARY: The patient was admitted on the above-noted date and had the above-noted surgery performed, which she tolerated well. On the first postoperative day, she was seen in the chair. Pain was controlled. She had no complaints. Vital signs were stable. She was afebrile. Splint and dressing were intact. Fingers were mobile. She was remaining stable, ambulating on her own, and it was felt that she could be discharged to home. For further review, please see chart. LABORATORY AND X-RAY DATA: As per chart. DISCHARGE INSTRUCTIONS: The patient was discharged to home in satisfactory condition on 01/11/2019. Diet, regular. Activity, maintain splint and dressing until followup with Dr. Torres. Frequent ice and elevation. Keep splint and dressing dry. Follow up with Dr. Torres in 10-14 days, call for appointment.
== END 2019-01-11 10:36 | disposition home or self-care (01) | DRG 512 ==
LOC: ED 11:13 → 3N 15:51 → ED 15:51 → 3N 20:30

== ENCOUNTER 2025-06-14 16:36 | Observation (INO) ==
--- NOTE | 2025-06-14 16:48 | Emergency Department Note ---
Impression & Plan Arthritis of right hip, Acute pain of right knee, Unable to ambulate ED Provider Note NAME: SHAILESH KENDALL AGE: 85 SEX: F : 1940 ARRIVES VIA: Ambulance INFORMANT: Patient, ED PROVIDER(S): Burak Patterson DO CHIEF COMPLAINT: Leg pain HPI: The patient is an 85-year-old female who presented to the emergency department for leg pain. The patient states that she had an acute onset of right leg pain while she was walking. She states her knee buckled and she was unable to put weight on the leg. The patient denies having any falls. She denies having any back pain or neck pain. The patient states she has never had similar symptoms like this before and has never injured this knee before. ROS: See above HPI for pertinent positives & negatives. A total of 10 systems reviewed and were otherwise negative. PAST MEDICAL HISTORY: See Below PAST SURGICAL HISTORY: See Below FAMILY HISTORY: See Below SOCIAL HISTORY: See Below HOME MEDICATIONS: See Below ALLERGIES: See Below VITALS: See Below PHYSICAL EXAMINATION: GENERAL: Patient is awake alert in no acute distress patient is resting comfortably and showing no signs of anxiety EYES: The conjunctivae are clear. The pupils are round and reactive. EARS, NOSE, MOUTH AND THROAT: The nose is without any evidence of any deformity. NECK: The neck is nontender and supple. RESPIRATORY: Normal respiratory effort is noted there is no evidence of wheezing rhonchi or rales CARDIOVASCULAR: Regular rate and rhythm noted there no murmurs rubs or gallops normal S1 normal S2. GASTROINTESTINAL: The abdomen is soft. Abdomen is nontender. MUSCULOSKELETAL/EXTREMITIES: There is no evidence of gross deformity full range of motion is noted in the hips and shoulders. There is tenderness to palpation over the right knee. There is no deformity. Patella appears intact. The patient is able to hold the leg off of the bed. Pulses are symmetric in both feet. SKIN: There is no obvious evidence of any rash. There are no petechiae, pallor or cyanosis noted. NEUROLOGIC: Patient is awake alert and oriented x3 MEDICAL DECISION MAKING: The patient is an 85-year-old female who presented to the emergency department for an evaluation of right knee pain. The patient states she had acute onset of right knee pain into her right hip. She has been able to ambulate ever since. Radiographic studies were obtained. There was no definite fracture of the right knee. She does have severe arthritis of the right hip. We attempted to ambulate the patient but she is unable to put any weight on the right leg. The patient is also refusing any pain medication. Because of her acute pain I will discuss her condition with the on-call [facility] hospitalist. Triage Nursing notes reviewed. Prior medical records reviewed Vital Signs: reviewed and remarkable for increased blood pressure. Differential diagnosis: Fracture, subluxation, dislocation, contusion, ligamentous injury, neurovascular, compartment syndrome, rhabdomyolysis, as well as other pathologies. ER treatment provided: See below Diagnostics interpreted by me: ECG: none Cardiac Monitoring: An order was placed for continuous cardiac monitoring. The monitor shows a rate of 98 bpm with sinus rhythm. Laboratory studies: As stated above and show below. Imaging studies: See below. Radiographic imaging was reviewed by myself Consultation(s): [facility]. Past Med/Surg History Problem List (Updated 06/14/25 @ 19:10 by Burak Patterson DO) Unable to ambulate (Acute) Acute pain of right knee (Acute) Arthritis of right hip (Acute) Borderline hypertension Hyperlipidemia Sessile colonic polyp Back pain Osteoporosis Medical History Fracture of left distal radius Normal colonoscopy Anterior dislocation of right shoulder Surgical History History of bilateral cataract extraction History of surgery on wrist History of colonoscopy History of root canal procedure No significant past surgical history Family History Mother Labor abnormal Father Heart failure Other Family history non-contributory Denies family history of Ovarian cancer Prostate cancer Diabetes Myocardial infarction Breast cancer Lung cancer Colorectal cancer Stroke Social History Smoking Status: Never smoker Second Hand Exposure: No; Do You Dip or Chew Tobacco: No; Hx Alcohol Use: Yes Alcohol type: beer, wine and hard liquor Alcohol Intake Frequency: 2-3 x/Week Alcohol Intake Frequency Comment: social Hx Substance Use: No Preferred Language: Brazilian Communication Ability: Effective Visual Impairment: Limited Hearing Ability: Normal Steward/Stewardess Economy Class Required: No Beliefs That Will Affect Care: None marital status: Current Living Situation: Spouse current occupational status: retired How many Children do You have: 3 Feels Safe at Home: Yes Childhood Exposure to Second-Hand Smoke: Yes caffeine: No Dental Care, Regularly: Yes Physical Activity Frequency: Daily Seatbelt Use: always Sunscreen Use: Yes Assistive Devices: Brace/Splint/Immobilizer Allergies Allergies Allergy/AdvReac Type Severity Reaction Status Date / Time fluconazole AdvReac Rash Verified 06/04/25 11:10 Home Meds Home Medications Medication Instructions Recorded Confirmed coenzyme Q10 100 mg capsule 100 mg PO BID17 01/10/19 06/04/25 (CoQ-10) multivitamin 1 cap PO BID17 01/10/19 06/04/25 salmon oil-omega-3 fatty acids 1 cap PO BID17 01/10/19 06/04/25 1,000 mg-200 mg capsule ([place] Oil-) [id number] 5 mg-zeaxanth 1 cap PO 12/23/20 06/04/25 1 mg-bilberry 7.5 mg-herbal capsule ([employer] Formula) calcium 600 mg (as carbonate)-vit 2 tab PO ONCE 08/21/23 06/04/25 D3 20 mcg (800 unit) chewable tablet (Caltrate plus D) garlic 300 mg PO TID 12/21/23 06/04/25 potassium chloride 20 mEq oral 20 meq PO DAILY 06/19/24 06/04/25 packet Results & Data (ED) Vital Signs Vital Signs - 24 hr 06/14/25 16:46 06/14/25 16:46 06/14/25 18:46 Temperature 37.1 C Temperature Source Oral Pulse Rate 80 Pulse Rate [Right Finger] 80 76 Respiratory Rate 16 16 16 Respiratory Effort / Characteristics Non-Labored Spontaneous Non-Labored Spontaneous Non-Labored Spontaneous Blood Pressure 213/89 H Blood Pressure [Right Arm] 213/89 H 177/98 H Blood Pressure Mean 130 Blood Pressure Mean [Right Arm] 130 124 Pulse Oximetry 97 97 96 Oxygen Delivery Method Room Air Room Air Room Air Sepsis New/Unexplained Change in Mental Status No Sepsis Action Taken by Nursing No Action Required 06/14/25 18:47 Temperature Temperature Source Pulse Rate 76 Pulse Rate [Right Finger] Respiratory Rate Respiratory Effort / Characteristics Blood Pressure Blood Pressure [Right Arm] Blood Pressure Mean Blood Pressure Mean [Right Arm] Pulse Oximetry 95 Oxygen Delivery Method Room Air Sepsis New/Unexplained Change in Mental Status Sepsis Action Taken by Long Term Medications Current Medication List: was personally reviewed by me Laboratory Data Attestation: I reviewed the patient's lab results. 06/14/25 18:36 06/14/25 18:36 Lab Results 06/14/25 Range/Units 18:36 WBC 9.65 (4.8-10.8) K/ul RBC 4.98 (4.20-5.40) M/uL Hgb 15.5 (12.0-16.0) g/dl Hct 44.4 (37.0-47.0) % MCV 89.2 (80.0-100.0) fL MCH 31.1 (25.0-34.0) pg MCHC 34.9 (32.0-36.0) g/dL RDW Std Deviation 38.8 (36.4-46.3) fL RDW Coeff of Maurilio 12.0 (11.5-14.5) % Plt Count 175 (130-400) K/uL MPV 10.6 (9.4-12.4) fL Immature Gran % (Auto) 0.4 % Neut % (Auto) 79.1 % Lymph % (Auto) 14.1 % Upson % (Auto) 5.9 % Eos % (Auto) 0.1 % Baso % (Auto) 0.4 % Neut # (Auto) 7.63 H (1.40-6.50) K/uL Lymph # (Auto) 1.36 (1.20-3.40) K/uL Upson # (Auto) 0.57 (0.11-0.59) K/uL Eos # (Auto) 0.01 (0.00-0.50) K/uL Baso # (Auto) 0.04 (0.00-0.20) K/uL Immature Gran # (Auto) 0.04 (0.01-0.20) K/uL Imaging Data Attestation: I personally reviewed and interpreted this imaging study as follows: My Impression: X-ray of the right hip pelvis femur and knee were obtained in the emergency department. My interpretation is no definite fracture or dislocation, there was severe arthritis of the right hip. Final report pending. Radiologist's Impression: Knee X-Ray 06/14/25 16:45 INDICATION: Trauma TECHNIQUE: 2 views of the right knee were obtained. COMPARISON: None FINDINGS: No displaced acute osseous process is identified. No substantial knee joint fluid Mild tricompartmental osteoarthritis with small marginal osteophytes. IMPRESSION: No displaced acute osseous process is identified. Electronically signed by Ignacio Queen 06-14-2025 7:10 PM Pelvis X-Ray 06/14/25 16:45 INDICATION: Trauma TECHNIQUE: Frontal pelvic radiograph is obtained. 2 views of the right femur were obtained. COMPARISON: Pelvic radiograph December 08, 2022 FINDINGS: No displaced acute osseous process is identified in the pelvis, the right hip or in the right femur. Severe osteoarthritis of the right hip joint again seen. IMPRESSION: No displaced acute osseous process is identified in the pelvis, the right hip or in the right femur. If there remains a clinical concern for radiographically occult injury, CT may be obtained. Electronically signed by Ignacio Queen 06-14-2025 7:10 PM Femur X-Ray 06/14/25 16:47 INDICATION: Trauma TECHNIQUE: Frontal pelvic radiograph is obtained. 2 views of the right femur were obtained. COMPARISON: Pelvic radiograph December 08, 2022 FINDINGS: No displaced acute osseous process is identified in the pelvis, the right hip or in the right femur. Severe osteoarthritis of the right hip joint again seen. IMPRESSION: No displaced acute osseous process is identified in the pelvis, the right hip or in the right femur. If there remains a clinical concern for radiographically occult injury, CT may be obtained. Electronically signed by Ignacio Queen 06-14-2025 7:10 PM Discharge Plan Visit Data Chief Complaint: Knee Injury/Pain Stated Complaint: KNEE PAIN ED Provider: Burak Patterson Discharge Problem: Arthritis of right hip, Acute pain of right knee, Unable to ambulate Patient Disposition: Being Evaluated by Hospitalist Condition: Fair Forms Stand Alone Forms: My [facility] [employer] Prescriptions Prescriptions: No Action Macular Health Formula 5-1-7.5 mg capsule 1 cap PO garlic Tablet 300 mg PO TID potassium chloride 20 mEq packet 20 meq PO DAILY multivitamin Capsule 1 cap PO BID17 coenzyme Q10 [CoQ-10] 100 mg Capsule 100 mg PO BID17 salmon oil-omega-3 fatty acids [[place] Oil-1000] 1,000-200 mg Capsule 1 cap PO BID17 Caltrate 600 plus D 600 mg-20 mcg (800 unit) tablet,chewable 2 tab PO ONCE Referrals Referrals: Channing Leggett DO [Primary Care Provider] -
[2025-06-14 19:08] LABS: Hematocrit (blood only) 44.4 % (37.0-47.0); Hemoglobin 15.5 g/dl (12.0-16.0); Immature Granulocytes # (auto) 0.04 K/uL (0.01-0.20); Immature Granulocytes % (auto) 0.4 %; Mean Corpuscular Hemoglobin 31.1 pg (25.0-34.0); Mean Corpuscular Volume 89.2 fL (80.0-100.0); Platelet Count 175 K/uL (130-400); RDW Standard Deviation 38.8 fL (36.4-46.3); Red Blood Count 4.98 M/uL (4.20-5.40); White Blood Count 9.65 K/ul (4.8-10.8)
--- NOTE | 2025-06-14 19:10 | XRay Report ---
INDICATION: Trauma TECHNIQUE: Frontal pelvic radiograph is obtained. 2 views of the right femur were obtained. COMPARISON: Pelvic radiograph December 08, 2022 FINDINGS: No displaced acute osseous process is identified in the pelvis, the right hip or in the right femur. Severe osteoarthritis of the right hip joint again seen. IMPRESSION: No displaced acute osseous process is identified in the pelvis, the right hip or in the right femur. If there remains a clinical concern for radiographically occult injury, CT may be obtained. Electronically signed by Ignacio Queen 06-14-2025 7:10 PM
--- NOTE | 2025-06-14 19:12 | XRay Report ---
INDICATION: Trauma TECHNIQUE: 2 views of the right knee were obtained. COMPARISON: None FINDINGS: No displaced acute osseous process is identified. No substantial knee joint fluid Mild tricompartmental osteoarthritis with small marginal osteophytes. IMPRESSION: No displaced acute osseous process is identified. Electronically signed by Ignacio Queen 06-14-2025 7:10 PM
--- NOTE | 2025-06-14 19:54 | History & Physical Report ---
Date of Service June 14, 2025 Assessment & Plan (1) Unable to ambulate: (2) Acute pain of right knee: (3) Arthritis of right hip: Plan The patient is a 85-year-old female with a past medical history including hyperlipidemia, osteoporosis, and right hip osteoarthritis. She presents to the emergency department with acute onset of inability to bear weight on her right leg, reporting that her right knee gave way as she was walking with her walker. She does wear a knee brace for support. She has had chronic right hip pain associate with osteoarthritis, but no significant change at this time. She has not had to see orthopedic surgery in the past. In the emergency department she was unable to bear weight as she was attempting to walk, and was referred for evaluation for admission. Inability to ambulate/acute pain of right knee/arthritis of right hip- Patient developed acute episode of inability to bear weight while walking with her walker. X-rays of pelvis, right hip , femur and right knee are negative for acute findings CT scan of pelvis shows no acute osseous findings. Moderate to severe right hip osteoarthritis CT scan of femur shows no acute fracture or dislocation. Moderate to severe right hip osteoarthritis. Mild tricompartment osteoarthritis of the knee. Soft tissues that are unremarkable. CT scan of the right knee shows no acute findings Acetaminophen 650 mg by mouth every 6 hours as needed for mild pain or fever Consult orthopedic surgery History of Present Illness Chief Complaint: The patient presents to the emergency department with complaint of acute onset of right leg pain, and her knee buckled while she was walking, and has been unable to put weight on her leg at this time. She has a known history of right hip osteoarthritis, but has never had issues like this in the past. Primary Care Provider: Channing Leggett DO The patient is a 85-year-old female with a past medical history including hyperlipidemia, osteoporosis, and right hip osteoarthritis. She presents to the emergency department with acute onset of inability to bear weight on her right leg, she has had chronic right hip pain associate with osteoarthritis, but no significant change at this time. She has not had to see orthopedic surgery in the past. In the emergency department she was unable to bear weight as she was attempting to walk, and was referred for evaluation for admission. Allergies Allergy/AdvReac Type Severity Reaction Status Date / Time fluconazole AdvReac Rash Verified 06/14/25 19:46 Home Medications Medication Instructions Recorded Confirmed Type No Known Home Medications 06/14/25 06/14/25 History Past Med/Surg History Problem List (Updated 06/14/25 @ 19:10 by Burak Patterson DO) Unable to ambulate (Acute) Acute pain of right knee (Acute) Arthritis of right hip (Acute) Borderline hypertension Hyperlipidemia Sessile colonic polyp Back pain Osteoporosis Medical History Fracture of left distal radius Normal colonoscopy Anterior dislocation of right shoulder Surgical History History of bilateral cataract extraction History of surgery on wrist History of colonoscopy History of root canal procedure No significant past surgical history Family History Mother Labor abnormal Father Heart failure Other Family history non-contributory Denies family history of Ovarian cancer Prostate cancer Diabetes Myocardial infarction Breast cancer Lung cancer Colorectal cancer Stroke Social History Smoking Status: Never smoker Second Hand Exposure: No; Do You Dip or Chew Tobacco: No; Hx Alcohol Use: Yes Alcohol type: beer, wine and hard liquor Alcohol Intake Frequency: 2-3 x/Week Alcohol Intake Frequency Comment: social Hx Substance Use: No Preferred Language: Jamaican Communication Ability: Effective Visual Impairment: Limited Hearing Ability: Normal Fire Code Inspector Required: No Beliefs That Will Affect Care: None marital status: Current Living Situation: Spouse current occupational status: retired How many Children do You have: 3 Feels Safe at Home: Yes Childhood Exposure to Second-Hand Smoke: Yes caffeine: No Dental Care, Regularly: Yes Physical Activity Frequency: Daily Seatbelt Use: always Sunscreen Use: Yes Assistive Devices: Brace/Splint/Immobilizer Review of Systems Review of Systems: The patient denies chest pain, palpitations, shortness of breath, dyspnea on exertion, cough, lower extremity swelling, sore throat, fevers, chills, sweats, fatigue, nausea, vomiting, diarrhea , constipation, abdominal pain, pelvic pain, blood in urine or stool, dysuria, urinary frequency or urgency, lightheadedness, dizziness, headache, memory loss, loss of consciousness, rash, abnormal bruising or bleeding, focal weakness, numbness or tingling in arms or left leg, generalized arthralgias or myalgias, back or neck pain, or night sweats. The review of systems is otherwise negative other than for that already noted above, and at least 10 systems have been reviewed. Physical Exam Physical Exam: The patient is awake, alert and oriented 3, well developed and well nourished, normocephalic and atraumatic, lying in bed and in no acute distress. HEENT--PERRL, EOMI, mucous membranes and oropharynx normal Neck--supple. No JVD. No bruits. Thyroid normal, trachea midline, no adenopathy. Heart--normal S1 and S2. No murmurs, rubs or gallops. Lungs--clear bilaterally, no respiratory distress, no accessory muscle use. Abdomen--normal bowel sounds and soft. Nontender. Nondistended Extremities--no cyanosis or clubbing. No edema. There are good distal pulses b/l. Dermatologic--normal skin turgor, normal color, no abnormal lymph nodes, no rash. Neurologic--cranial nerves II through XII grossly intact. Rheumatologic--normal range of motion. Psychiatric--normal affect. Results & Data Results & Data Vital Signs (Past 12 Hours) Vital Signs Temp Pulse Pulse Resp BP BP Pulse Ox 06/14/25 18:47 76 95 06/14/25 18:46 76 16 177/98 H 96 06/14/25 16:46 80 16 213/89 H 97 06/14/25 16:46 37.1 C 80 16 213/89 H 97 O2 Del Method 06/14/25 18:47 Room Air 06/14/25 18:46 Room Air 06/14/25 16:46 Room Air 06/14/25 16:46 Room Air Laboratory Results Laboratory Results WBC 9.65 K/ul (4.8-10.8) 06/14/25 18:36 RBC 4.98 M/uL (4.20-5.40) 06/14/25 18:36 Hgb 15.5 g/dl (12.0-16.0) 06/14/25 18:36 Hct 44.4 % (37.0-47.0) 06/14/25 18:36 MCV 89.2 fL (80.0-100.0) 06/14/25 18:36 MCH 31.1 pg (25.0-34.0) 06/14/25 18:36 MCHC 34.9 g/dL (32.0-36.0) 06/14/25 18:36 RDW Std Deviation 38.8 fL (36.4-46.3) 06/14/25 18:36 RDW Coeff of Maurilio 12.0 % (11.5-14.5) 06/14/25 18:36 Plt Count 175 K/uL (130-400) 06/14/25 18:36 MPV 10.6 fL (9.4-12.4) 06/14/25 18:36 Immature Gran % (Auto) 0.4 % 06/14/25 18:36 Neut % (Auto) 79.1 % 06/14/25 18:36 Lymph % (Auto) 14.1 % 06/14/25 18:36 [place] % (Auto) 5.9 % 06/14/25 18:36 Eos % (Auto) 0.1 % 06/14/25 18:36 Baso % (Auto) 0.4 % 06/14/25 18:36 Neut # (Auto) 7.63 K/uL (1.40-6.50) H 06/14/25 18:36 Lymph # (Auto) 1.36 K/uL (1.20-3.40) 06/14/25 18:36 [place] # (Auto) 0.57 K/uL (0.11-0.59) 06/14/25 18:36 Eos # (Auto) 0.01 K/uL (0.00-0.50) 06/14/25 18:36 Baso # (Auto) 0.04 K/uL (0.00-0.20) 06/14/25 18:36 Immature Gran # (Auto) 0.04 K/uL (0.01-0.20) 06/14/25 18:36 Impressions Knee X-Ray 06/14/25 16:45 INDICATION: Trauma TECHNIQUE: 2 views of the right knee were obtained. COMPARISON: None FINDINGS: No displaced acute osseous process is identified. No substantial knee joint fluid Mild tricompartmental osteoarthritis with small marginal osteophytes. IMPRESSION: No displaced acute osseous process is identified. Electronically signed by Ignacio Queen 06-14-2025 7:10 PM Pelvis X-Ray 06/14/25 16:45 INDICATION: Trauma TECHNIQUE: Frontal pelvic radiograph is obtained. 2 views of the right femur were obtained. COMPARISON: Pelvic radiograph December 08, 2022 FINDINGS: No displaced acute osseous process is identified in the pelvis, the right hip or in the right femur. Severe osteoarthritis of the right hip joint again seen. IMPRESSION: No displaced acute osseous process is identified in the pelvis, the right hip or in the right femur. If there remains a clinical concern for radiographically occult injury, CT may be obtained. Electronically signed by Ignacio Queen 06-14-2025 7:10 PM Femur X-Ray 06/14/25 16:47 INDICATION: Trauma TECHNIQUE: Frontal pelvic radiograph is obtained. 2 views of the right femur were obtained. COMPARISON: Pelvic radiograph December 08, 2022 FINDINGS: No displaced acute osseous process is identified in the pelvis, the right hip or in the right femur. Severe osteoarthritis of the right hip joint again seen. IMPRESSION: No displaced acute osseous process is identified in the pelvis, the right hip or in the right femur. If there remains a clinical concern for radiographically occult injury, CT may be obtained. Electronically signed by Ignacio Queen 06-14-2025 7:10 PM Code Status & VTE Plan Code Status Full code PG Care Time/CCT Total # of Minutes Spent Total Time Spent with Patient: Total time spent is greater than 50% in coordination of care (as documented) at patient's floor/unit and/or counseling patient: Coding Level of Care Code 44179 INT INP/OBS CARE 2/55MIN Diagnoses Unable to ambulate R26.2 Acute pain of right knee M25.561 Arthritis of right hip M16.11
[2025-06-14 20:11] LABS: Alanine Aminotransferase 19 U/L (7-52); Albumin Globulin Ratio 1.1 (0.9-2); Alkaline Phosphatase 57 U/L (34-104); Anion Gap 11 (3-11); Bilirubin,Total 0.9 mg/dl (0.2-1.0); Blood Urea Nitrogen 18 mg/dl (6-23); Calcium 9.9 mg/dl (8.6-10.3); Carbon Dioxide 23 mmol/L (21-32); Chloride 106 mmol/L (98-107); Creatinine Clr Calc Pharmacy 42.5 ml/min; Globulin 3.6 gm/dl (2.5-4.0); Glucose 104 mg/dl (70-99(Fasting)); Lipase 39 U/L (11-82); Sodium 140 mmol/L (136-145); Total Protein 7.7 gm/dl (6.0-8.3)
--- NOTE | 2025-06-14 20:40 | CT Scan Report ---
Exam(s): CT PELVIS Without Contrast EXAM: CT Pelvis Without Intravenous Contrast CLINICAL HISTORY: Reason for exam: pain. TECHNIQUE: Axial computed tomography images of the pelvis without intravenous contrast. CTDI is 10.55 mGy and DLP is 746.55 mGy-cm. Automated exposure control was utilized for the study. A dose lowering technique was utilized adhering to the principles of ALARA. COMPARISON: No relevant prior studies available. FINDINGS: Bones/joints: Osteopenia. Moderate-severe osteoarthritis of the right hip. Sacroiliac joints, hip joints, and pubic symphysis are normally aligned. No acute fracture or dislocation. Disc and facet degeneration in the visualized lumbar spine. Soft tissues: Unremarkable. IMPRESSION: 1. No acute osseous findings. 2. Moderate-severe right hip osteoarthritis. Electronically signed by: Donnell Gray M.D. 06/14/25 20:39 PM
--- NOTE | 2025-06-14 20:41 | CT Scan Report ---
Exam(s): CT EXTREMITY RIGHT LOWER Without Contrast EXAM: CT Right Lower Extremity Without Intravenous Contrast CLINICAL HISTORY: Reason for exam: pain. TECHNIQUE: Axial computed tomography images of the right lower extremity without intravenous contrast. CTDI is 10.55 mGy and DLP is 746.55 mGy-cm. Automated exposure control was utilized for the study. A dose lowering technique was utilized adhering to the principles of ALARA. COMPARISON: No relevant prior studies available. FINDINGS: Bones/joints: Osteopenia. No acute fracture or dislocation. Moderate- severe right hip osteoarthritis. Mild tricompartment osteoarthritis of the knee. Soft tissues: Unremarkable. IMPRESSION: 1. No acute fracture or dislocation. 2. Moderate-severe right hip osteoarthritis. Electronically signed by: Donnell Gray M.D. 06/14/25 20:40 PM
--- NOTE | 2025-06-14 21:00 | CT Scan Report ---
Exam(s): CT RIGHT KNEE Without Contrast EXAM: CT Right Lower Extremity Without Intravenous Contrast, Knee CLINICAL HISTORY: Reason for exam: pain. TECHNIQUE: Axial computed tomography images of the right knee without intravenous contrast. CTDI is 10.55 mGy and DLP is 746.55 mGy-cm. Automated exposure control was utilized for the study. A dose lowering technique was utilized adhering to the principles of ALARA. COMPARISON: No relevant prior studies available. FINDINGS: Bones/joints: Osteopenia. No acute fracture or dislocation. No significant joint effusion. Superior patellar enthesopathy. Mild osteoarthritis of the medial femorotibial joint. Soft tissues: Unremarkable. IMPRESSION: No acute findings in the right knee. Electronically signed by: Donnell Gray M.D. 06/14/25 20:59 PM
[2025-06-14 21:29] LABS: Potassium 4.3 mmol/L (3.5-5.1)
[2025-06-14] MEDS: ACETAMINOPHEN 325 MG TAB PO PRN (22:39)
[2025-06-14] MEDS: HEPARIN SOD 5,000 UNIT/0.5 ML VIAL SQ SCH (22:39)
[2025-06-15 05:27] LABS: Appearance Urine Cloudy (Clear); Bacteria Urine Automated None Seen (None Seen); Cast Urine Automated 0-2 /lpf (0-2); Epithelial Cell Urine Auto 0-2 /hpf (0-2); Glucose Urine UA Negative (Negative); RBC Urine Automated 0-2 /hpf (0-2); WBC Urine Automated 0-5 /hpf (0-5)
[2025-06-15 07:34] VITALS: TEMP 98.1; O2SAT 96
[2025-06-15] MEDS: SENNA 8.6 MG TAB PO SCH (08:20)
[2025-06-15] MEDS: ACETAMINOPHEN 500 MG TAB PO SCH (08:20)
[2025-06-15] MEDS: DICLOFENAC SOD 1% GEL 100 GM TUBE EXT SCH (08:21)
[2025-06-15 09:40] LABS: Hematocrit (blood only) 41.6 % (37.0-47.0); Hemoglobin 14.4 g/dl (12.0-16.0); Immature Granulocytes # (auto) 0.02 K/uL (0.01-0.20); Immature Granulocytes % (auto) 0.3 %; Mean Corpuscular Hemoglobin 31.0 pg (25.0-34.0); Mean Corpuscular Volume 89.7 fL (80.0-100.0); Platelet Count 171 K/uL (130-400); RDW Standard Deviation 39.3 fL (36.4-46.3); Red Blood Count 4.64 M/uL (4.20-5.40); White Blood Count 7.07 K/ul (4.8-10.8)
[2025-06-15 09:53] LABS: Anion Gap 6.0 (3-11); Blood Urea Nitrogen 14.0 mg/dl (6-23); Calcium 9.1 mg/dl (8.6-10.3); Carbon Dioxide 26.0 mmol/L (21-32); Chloride 107.0 mmol/L (98-107); Creatinine Clr Calc Pharmacy 39.2 ml/min; Glucose 128.0 mg/dl (70-99(Fasting)); Magnesium 1.9 mg/dl (1.7-2.4); Potassium 3.5 mmol/L (3.5-5.1); Sodium 139.0 mmol/L (136-145)
--- NOTE | 2025-06-15 10:01 | Orthopedic Consultation ---
Date of Consultation June 15, 2025 Assessment & Plan (1) Acute pain of right knee: PT/OT Weightbearing as tolerated with cane or walker assistance Her pain is completely resolved with oral pain medication Message was sent to teams for the patient to follow-up in our clinic in 2 weeks Orthopedically patient is stable for discharge once she meets PT/OT criteria Continue care per primary service. Please re-call if any Ortho issues (2) Arthritis of right hip: Supervising Physician Co-Signing Physician Notes I, Dr. Kang, saw and examined the patient with my PA. I discussed the management with my PA. I reviewed my PAs note and agree with the documented findings and attest to completing the substantive portion of medical decision making and plan of care I developed. History of Present Illness Reason for Consultation: Right hip and knee pain Requesting Physician: Temo Kang MD Attending Physician: Jass Simmons MD History of Present Illness The patient is a 85-year-old female with a past medical history including hyperlipidemia, osteoporosis, and right hip osteoarthritis. She presents to the emergency department with acute onset of inability to bear weight on her right leg, reporting that her right knee gave way as she was walking with her walker. She does wear a knee brace for support. She has had chronic right hip pain associate with osteoarthritis, but no significant change at this time. She has not had to see orthopedic surgery in the past. In the emergency department she was unable to bear weight as she was attempting to walk, and was referred for evaluation for admission. Allergies Allergy/AdvReac Type Severity Reaction Status Date / Time fluconazole AdvReac Rash Verified 06/14/25 19:46 Home Medications Medication Instructions Recorded Confirmed Type No Known Home Medications 06/14/25 06/14/25 History Patient History Medical History Fracture of left distal radius Normal colonoscopy Anterior dislocation of right shoulder Surgical History History of bilateral cataract extraction History of surgery on wrist History of colonoscopy History of root canal procedure No significant past surgical history Family History Mother Labor abnormal Father Heart failure Other Family history non-contributory Denies family history of Ovarian cancer Prostate cancer Diabetes Myocardial infarction Breast cancer Lung cancer Colorectal cancer Stroke Social History Smoking Status: Never smoker Second Hand Exposure: No; Do You Dip or Chew Tobacco: No; Hx Alcohol Use: Yes Alcohol type: wine Alcohol Intake Frequency: 2-3 x/Week Alcohol Intake Frequency Comment: social Hx Substance Use: No Preferred Language: Lithuanian Communication Ability: Effective Visual Impairment: Limited Hearing Ability: Normal Accounts Payable Representative Required: No Beliefs That Will Affect Care: None marital status: Current Living Situation: Spouse current occupational status: retired How many Children do You have: 3 Other Information That Helps Us Care for You: No Feels Safe at Home: Yes Safety Concerns: Feels Safe At This Time Childhood Exposure to Second-Hand Smoke: Yes caffeine: No Dental Care, Regularly: Yes Physical Activity Frequency: Daily Seatbelt Use: always Sunscreen Use: Yes Assistive Devices: Cane Assistive Devices Comment: Ambulates independently at baseline with a walking pole. Review of Systems Review of Systems: All systems reviewed & are unremarkable except as noted in Subjective Physical Exam Physical Exam: Right knee: Active range of motion is from 0 degrees of extension to 125 degrees of flexion without pain or difficulty. Patient experienced no joint line tenderness. Dulce Maria was stable. PD was negative. She had no laxity to varus or valgus stressing. She does have a slight varus malalignment. There is no effusion. Patient is able to easily dorsi and plantarflex her foot and type of motion sensation intact over the pads of all digits. Right hip: Flexion is limited to 90 degrees, internal rotation to 5 degrees and external rotation to 35 degrees without discomfort. Passive abduction to 25 degrees and adduction to 15 degrees. Patient has no tenderness to palpation in her groin. She is able to form an active straight leg raise test. Log roll test negative. Results & Data Vital Signs (Past 12 Hours) Vital Signs Temp Pulse Pulse Pulse Resp BP BP 06/15/25 07:33 36.7 C 59 L 18 176/78 H 06/15/25 00:41 135/80 06/14/25 22:10 36.9 C 63 16 187/86 H 06/14/25 21:59 73 16 166/79 H Pulse Ox O2 Del Method 06/15/25 07:33 96 Room Air 06/15/25 00:41 06/14/25 22:10 95 Room Air 06/14/25 21:59 95 Room Air Diagnostic Findings Laboratory Results WBC 7.07 K/ul (4.8-10.8) 06/15/25 09:08 RBC 4.64 M/uL (4.20-5.40) 06/15/25 09:08 Hgb 14.4 g/dl (12.0-16.0) 06/15/25 09:08 Hct 41.6 % (37.0-47.0) 06/15/25 09:08 MCV 89.7 fL (80.0-100.0) 06/15/25 09:08 MCH 31.0 pg (25.0-34.0) 06/15/25 09:08 MCHC 34.6 g/dL (32.0-36.0) 06/15/25 09:08 RDW Std Deviation 39.3 fL (36.4-46.3) 06/15/25 09:08 RDW Coeff of Maurilio 11.9 % (11.5-14.5) 06/15/25 09:08 Plt Count 171 K/uL (130-400) 06/15/25 09:08 MPV 10.2 fL (9.4-12.4) 06/15/25 09:08 Immature Gran % (Auto) 0.3 % 06/15/25 09:08 Neut % (Auto) 60.9 % 06/15/25 09:08 Lymph % (Auto) 25.7 % 06/15/25 09:08 [place] % (Auto) 8.1 % 06/15/25 09:08 Eos % (Auto) 4.2 % 06/15/25 09:08 Baso % (Auto) 0.8 % 06/15/25 09:08 Neut # (Auto) 4.30 K/uL (1.40-6.50) 06/15/25 09:08 Lymph # (Auto) 1.82 K/uL (1.20-3.40) 06/15/25 09:08 [place] # (Auto) 0.57 K/uL (0.11-0.59) 06/15/25 09:08 Eos # (Auto) 0.30 K/uL (0.00-0.50) 06/15/25 09:08 Baso # (Auto) 0.06 K/uL (0.00-0.20) 06/15/25 09:08 Immature Gran # (Auto) 0.02 K/uL (0.01-0.20) 06/15/25 09:08 Sodium 139 mmol/L (136-145) 06/15/25 09:08 Potassium 3.5 mmol/L (3.5-5.1) 06/15/25 09:08 Chloride 107 mmol/L (98-107) 06/15/25 09:08 Carbon Dioxide 26 mmol/L (21-32) 06/15/25 09:08 Anion Gap 6 (3-11) 06/15/25 09:08 BUN 14 mg/dl (6-23) 06/15/25 09:08 Creatinine 0.82 mg/dl (0.6-1.2) 06/15/25 09:08 Est Cr Clr Drug Dosing 39.2 ml/min 06/15/25 09:08 eGFR 70.93 06/15/25 09:08 BUN/Creatinine Ratio 17.1 (10-20) 06/15/25 09:08 Glucose 128 mg/dl (70-99(Fasting)) H 06/15/25 09:08 Calcium 9.1 mg/dl (8.6-10.3) 06/15/25 09:08 Phosphorus 2.7 mg/dl (2.5-4.9) 06/15/25 09:08 Magnesium 1.9 mg/dl (1.7-2.4) 06/15/25 09:08 Total Bilirubin 0.9 mg/dl (0.2-1.0) 06/14/25 18:36 AST 25 U/L (13-39) 06/14/25 20:43 ALT 19 U/L (7-52) 06/14/25 18:36 Alkaline Phosphatase 57 U/L (34-104) 06/14/25 18:36 Total Protein 7.7 gm/dl (6.0-8.3) 06/14/25 18:36 Albumin 3.4 gm/dl (3.4-5.0) 06/15/25 09:08 Globulin 3.6 gm/dl (2.5-4.0) 06/14/25 18:36 Albumin/Globulin Ratio 1.1 (0.9-2) 06/14/25 18:36 Lipase 39 U/L (11-82) 06/14/25 18:36 Urine Color Yellow 06/15/25 05:00 Urine Appearance Cloudy (Clear) A 06/15/25 05:00 Urine pH 7.5 (4.5-7.5) 06/15/25 05:00 Ur Specific [place] 1.015 (1.000-1.030) 06/15/25 05:00 Urine Protein Negative (Negative) 06/15/25 05:00 Urine Glucose (UA) Negative (Negative) 06/15/25 05:00 Urine Ketones 2+ (Negative) H 06/15/25 05:00 Urine Blood Negative (Negative) 06/15/25 05:00 Urine Nitrite Negative (Negative) 06/15/25 05:00 Urine Bilirubin Negative (Negative) 06/15/25 05:00 Urine Urobilinogen Negative (Negative) 06/15/25 05:00 Ur Leukocyte Esterase Negative (Negative) 06/15/25 05:00 Urine WBC (Auto) 0-5 /hpf (0-5) 06/15/25 05:00 Urine RBC (Auto) 0-2 /hpf (0-2) 06/15/25 05:00 U Hyaline Cast (Auto) 0-2 /lpf (0-2) 06/15/25 05:00 U Epithel Cells (Auto) 0-2 /hpf (0-2) 06/15/25 05:00 Urine Bacteria (Auto) None Seen (None Seen) 06/15/25 05:00 Urine Comment 06/15/25 05:00 Impressions Knee X-Ray 06/14/25 16:45 INDICATION: Trauma TECHNIQUE: 2 views of the right knee were obtained. COMPARISON: None FINDINGS: No displaced acute osseous process is identified. No substantial knee joint fluid Mild tricompartmental osteoarthritis with small marginal osteophytes. IMPRESSION: No displaced acute osseous process is identified. Electronically signed by Ignacio Queen 06-14-2025 7:10 PM Pelvis X-Ray 06/14/25 16:45 INDICATION: Trauma TECHNIQUE: Frontal pelvic radiograph is obtained. 2 views of the right femur were obtained. COMPARISON: Pelvic radiograph December 08, 2022 FINDINGS: No displaced acute osseous process is identified in the pelvis, the right hip or in the right femur. Severe osteoarthritis of the right hip joint again seen. IMPRESSION: No displaced acute osseous process is identified in the pelvis, the right hip or in the right femur. If there remains a clinical concern for radiographically occult injury, CT may be obtained. Electronically signed by Ignacio Queen 06-14-2025 7:10 PM Femur X-Ray 06/14/25 16:47 INDICATION: Trauma TECHNIQUE: Frontal pelvic radiograph is obtained. 2 views of the right femur were obtained. COMPARISON: Pelvic radiograph December 08, 2022 FINDINGS: No displaced acute osseous process is identified in the pelvis, the right hip or in the right femur. Severe osteoarthritis of the right hip joint again seen. IMPRESSION: No displaced acute osseous process is identified in the pelvis, the right hip or in the right femur. If there remains a clinical concern for radiographically occult injury, CT may be obtained. Electronically signed by Ignacio Queen 06-14-2025 7:[address] 06/14/25 19:23 Exam(s): CT EXTREMITY RIGHT LOWER Without Contrast EXAM: CT Right Lower Extremity Without Intravenous Contrast CLINICAL HISTORY: Reason for exam: pain. TECHNIQUE: Axial computed tomography images of the right lower extremity without intravenous contrast. CTDI is 10.55 mGy and DLP is 746.55 mGy-cm. Automated exposure control was utilized for the study. A dose lowering technique was utilized adhering to the principles of ALARA. COMPARISON: No relevant prior studies available. FINDINGS: Bones/joints: Osteopenia. No acute fracture or dislocation. Moderate- severe right hip osteoarthritis. Mild tricompartment osteoarthritis of the knee. Soft tissues: Unremarkable. IMPRESSION: 1. No acute fracture or dislocation. 2. Moderate-severe right hip osteoarthritis. Electronically signed by: Donnell Gray M.D. 06/14/25 20:[address] 06/14/25 19:23 Exam(s): CT RIGHT KNEE Without Contrast EXAM: CT Right Lower Extremity Without Intravenous Contrast, Knee CLINICAL HISTORY: Reason for exam: pain. TECHNIQUE: Axial computed tomography images of the right knee without intravenous contrast. CTDI is 10.55 mGy and DLP is 746.55 mGy-cm. Automated exposure control was utilized for the study. A dose lowering technique was utilized adhering to the principles of ALARA. COMPARISON: No relevant prior studies available. FINDINGS: Bones/joints: Osteopenia. No acute fracture or dislocation. No significant joint effusion. Superior patellar enthesopathy. Mild osteoarthritis of the medial femorotibial joint. Soft tissues: Unremarkable. IMPRESSION: No acute findings in the right knee. Electronically signed by: Donnell Gray M.D. 06/14/25 20:[address] 06/14/25 19:23 Exam(s): CT PELVIS Without Contrast EXAM: CT Pelvis Without Intravenous Contrast CLINICAL HISTORY: Reason for exam: pain. TECHNIQUE: Axial computed tomography images of the pelvis without intravenous contrast. CTDI is 10.55 mGy and DLP is 746.55 mGy-cm. Automated exposure control was utilized for the study. A dose lowering technique was utilized adhering to the principles of ALARA. COMPARISON: No relevant prior studies available. FINDINGS: Bones/joints: Osteopenia. Moderate-severe osteoarthritis of the right hip. Sacroiliac joints, hip joints, and pubic symphysis are normally aligned. No acute fracture or dislocation. Disc and facet degeneration in the visualized lumbar spine. Soft tissues: Unremarkable. IMPRESSION: 1. No acute osseous findings. 2. Moderate-severe right hip osteoarthritis. Electronically signed by: Donnell Gray M.D. 06/14/25 20:39 PM
[2025-06-15 13:29] VITALS: BP 120/70; PULSE 63; RESP 15
--- NOTE | 2025-06-15 18:09 | Discharge Summary ---
Discharge Summary Date of Service June 15, 2025 Principal Dx & Hospital Course #1 = Principal Diagnosis Admission HPI Per Admitting Provider The patient is a 85-year-old female with a past medical history including hyperlipidemia, osteoporosis, and right hip osteoarthritis. She presents to the emergency department with acute onset of inability to bear weight on her right leg, she has had chronic right hip pain associate with osteoarthritis, but no significant change at this time. She has not had to see orthopedic surgery in the past. In the emergency department she was unable to bear weight as she was attempting to walk, and was referred for evaluation for admission. Discharge Plan Discharge Items Patient Disposition: Home - Self-Care Reason For Visit: Difficulty bearing weight on right leg Discharge Diagnosis: 1. advanced right hip arthritis 2. mild arthritis of right knee 3. episode of difficulty bearing weight on right leg - likely due to #1, #2 4. ?mild confusion - due to hospital delirium? - please follow-up with your family doctor Activity Comment: gradually increase activities over the next 3 days Non-emergency contact: Primary Care Provider Call non-emergency contact if: you have any medication questions, your symptoms worsen and your pain is not controlled Follow-up/Referrals: Channing Leggett DO [Primary Care Provider] - (see Dr Leggett within 1 week ) Diet: Regular Addtl Attending Provider Instructions: Ms Herrera, Trent were hospitalized after having had pain & buckling of your right knee leading to difficulty bearing weight on the right leg. This led to difficulty ambulating/walking. X-rays and CT scans of the right leg - hip bone, femur bone, and knee - were negative for fractures. You do have advanced arthritis of your right hip. Imaging showed mild arthritis of your right knee. [facility] saw you in consult - nothing specific was advised at this time for either the right hip or knee. You were seen by physical therapy and your walking was very good; acute rehab was not advised at a rehab center. Your neurological exam was normal in your arms & legs. I suspect that a combination of right hip and right knee arthritis led to your event. I cannot rule out locking/buckling of the knee from a meniscus problem (a ligament in your knee). My only other concern was that of some mild confusion noted by myself & nursing staff. About 40-50% of people who are hospitalized develop confusion during their hospitalization. In many cases it is mild, in some people it can be severe. Of note - your blood work and urine testing were all normal during the stay. Recommendations - 1. for right hip and right knee pain you can take btir-bvo-xacdovh Tylenol 1000mg every 6 hours as needed, maximum 3000mg in 24 hours. 2. for right knee pain you can take wxjg-fhm-eyemsld voltaren (diclofenac) gel -- 4 grams every 6 hours to the right knee as needed. 3. if your right hip starts to give you daily pain, interferes with normal activities, affects your quality of life, etc - this is when you should see orthopedics to talk about a hip injection or even a hip replacement. 4. if you notice any ongoing confusion or memory difficulties please talk to Dr Leggett about this. He can perform additional testing. Follow-up - -see Dr Leggett within a week -see orthopedics on an as needed basis for hip/knee problems Return to [facility] if - -you have fevers over 100 degrees -you develop weakness of either leg or either arm -you have inability to walk/ambulate -you have uncontrolled pain -any other concerns It was our pleasure to care for you! -Jass Simmons, [facility] Hospitalist Addtl Local Truck Driver Provider Instructions: Weightbearing as tolerated with walker or cane assistance, if needed PT/OT if needed/if desired Ice to right knee as needed/as desired Follow-up with [facility] orthopedics (or [facility]) [facility] Orth[facility] clinic - [phone] Pending Studies at Discharge: No Stand-Alone Forms: My [facility], Smoking Cessation Medications and DC Order Prescriptions: New acetaminophen [Tylenol Extra Strength] 500 mg Tablet 1,000 mg PO TID PRN (Reason: pain) Qty: 1 0RF Rx Instructions: purchase syru-jef-edlontc; maximum of 3000mg in 24 hours. diclofenac sodium [Voltaren Arthritis Pain] 1 % Gel 4 g EXT QID PRN (Reason: right knee pain) Qty: 1 0RF Rx Instructions: apply to right knee; purchase nohe-ehq-zsmtrxm Discharge Orders: Discharge Order (Routine); Ordered 06/15/25 Ordered By: Jass Simmons Admission Data Admit Date/Time: 06/14/25 20:53 Attending Provider: Jass Simmons Admit Provider: Sky Oneil Primary Care Provider: Channing Leggett Other Providers: Temo Kang; Sky Oneil Hospital Stay Data Consultations 06/14/25 19:18 ED Decision to Admit Stat 06/14/25 20:53 Consult Orthopedic Surgery Routine Diagnostic Imagining Performed 06/14/25 19:23 CT femur RT wo con Stat CT knee RT wo con Stat CT pelvis wo con Stat Pending Results Patient Have Any Pending Studies at Discharge: No Discharge Instructions Given to Patient (Per Discharging Provider) Ms Herrera, Trent were hospitalized after having had pain & buckling of your right knee leading to difficulty bearing weight on the right leg. This led to difficulty ambulating/walking. X-rays and CT scans of the right leg - hip bone, femur bone, and knee - were n egative for fractures. You do have advanced arthritis of your right hip. Imaging showed mild arthritis of your right knee. [facility] saw you in consult - nothing specific was advised at this time for either the right hip or knee. You were seen by physical therapy and your walking was very good; acute rehab was not advised at a rehab center. Your neurological exam was normal in your arms & legs. I suspect that a combination of right hip and right knee arthritis led to your event. I cannot rule out locking/buckling of the knee from a meniscus problem (a ligament in your knee). My only other concern was that of some mild confusion noted by myself & nursing staff. About 40-50% of people who are hospitalized develop confusion during their hospitalization. In many cases it is mild, in some people it can be severe. Of note - your blood work and urine testing were all normal during the stay. Recommendations - 1. for right hip and right knee pain you can take wmdz-huv-gluynhx Tylenol 1000mg every 6 hours as needed, maximum 3000mg in 24 hours. 2. for right knee pain you can take jgqd-suo-uckvcse voltaren (diclofenac) gel -- 4 grams every 6 hours to the right knee as needed. 3. if your right hip starts to give you daily pain, interferes with normal activities, affects your quality of life, etc - this is when you should see orthopedics to talk about a hip injection or even a hip replacement. 4. if you notice any ongoing confusion or memory difficulties please talk to Dr Leggett about this. He can perform additional testing. Follow-up - -see Dr Leggett within a week -see orthopedics on an as needed basis for hip/knee problems Return to [facility] if - -you have fevers over 100 degrees -you develop weakness of either leg or either arm -you have inability to walk/ambulate -you have uncontrolled pain -any other concerns It was our pleasure to care for you! -Jass Simmons, [facility] Hospitalist Coding
== END 2025-06-15 18:43 | disposition home or self-care (01) ==
LOC: ED 16:36 → SUATTDRO 20:53 → INTOOBSV 20:53 → 3N 20:53

== ENCOUNTER 2025-09-06 16:46 | Inpatient (IN) ==
--- NOTE | 2025-09-06 17:11 | Emergency Department Note ---
Impression & Plan Weakness, Fall, Tachycardia, Contusion of right knee, Contusion of left knee, Closed fracture of proximal end of right humerus, Elevated troponin ED Provider Note NAME: SHAILESH KENDALL AGE: 85 SEX: F : 1940 ARRIVES VIA: Ambulance INFORMANT: [Patient] ED PROVIDER(S): [Cordell Holt MD] Patient first seen by me at 1651. CHIEF COMPLAINT: Fall HISTORY OF PRESENT ILLNESS: The patient is an 85-year-old female who has a recent fracture to the right humerus. This is being managed conservatively. She is on narcotics for pain control. The patient states that her legs have been shaky, possibly from her new narcotic prescription. Today, she stood, her legs sort of gave out and she fell. She fell onto her knees. No loss of consciousness. No head strike. She is not on blood thinning agents. She states that she could not get up on her own and the ambulance was called. The patient did not injure her head or neck. She has no spinal pain, no rib pain or shortness of breath. No abdominal pain. She states that her knees feel like they are scraped but otherwise, they seem okay. She states that her right humerus discomfort is at baseline, the pain has not worsened since falling. PMHx/PSHx/Social Hx: See Below PHYSICAL EXAM: Primary Survey Airway: Intact Breathing: Breath sounds equal bilaterally. No respiratory distress Circulation: Skin warm, capillary refill less than 2 seconds Disability: Pupils equal and reactive to light Motor Function: Moves all extremities. Sensory: No deficits Secondary Survey GEN: Well developed and well-nourished HEAD: There is some older contusion around both eyes. EYES: Pupils round and reactive to light, conjunctiva clear, extraocular movements intact ENT: No fluid in external acoustic canals, nares patent, oropharynx clear NECK: Midline trachea, no cervical spine tenderness HEART: Mildly tachycardic, no murmurs, regular rhythm. LUNGS: Clear to auscultation bilaterally CHEST: Chest wall non-tender, no bruising/deformity ABD: No contusions, soft, non-tender, no distention PELVIS: Stable to rock BACK: No step offs or deformities, T-L spine non tender EXT: There is a brace to the right shoulder consistent with the recent right humeral fracture. The right upper extremity is contused throughout, the contusion appears older. No real pain to move the right elbow or right wrist. Patient does have mild abrasions and forming contusions to both anterior knees. No pain to move the knee joints. NEURO: No focal motor deficits, no sensory deficits DIFFERENTIAL DIAGNOSIS: Fracture, sprain, strain, dehydration, anemia, electrolyte imbalance, debilitation, among others. EMERGENCY DEPARTMENT PROCEDURES: C-spine was clinically cleared at the time of my initial assessment, 1654. MEDICAL DECISION MAKING: There is no leukocytosis or worrisome anemia. There is a normal platelet count. No bandemia. No renal failure or significant electrolyte abnormality. No concerning liver enzyme elevation. The patient appears to be in a euthyroid state. Urinalysis shows some dehydration, no infection. ECG shows a sinus tachycardia, no obvious ST elevation. Cardiac enzyme testing is elevated. This troponin elevation could be secondary to cardiac injury or mismatch from her weakness and tachycardia. Chest x-ray shows some older right rib fractures. There was no pneumothorax. Right humerus film shows the same fracture noted previously. There was no right humeral head dislocation. Bilateral knee films were performed, there were no fractures or dislocations. Urinalysis did not show findings of infection. On exam, the patient was tachycardic. She denied any chest pain or dyspnea. She had no evidence for injury to the head, neck, back, ribs or abdomen. Patient was given IV saline, 1 L. I do not think the patient is safe for discharge home. She has a right humeral fracture from a recent fall. She now fell again today. She is weak about the legs, she is tachycardic, she is dehydrated. She has an elevated troponin. I do think further care, monitoring and workup is warranted in the hospital. I spoke with the patient about admission, she did consent. I did speak with case management, the on-call hospitalist was consulted. Prior/Outside records/notes reviewed: Today's EMS notes describing her presentation and transport to this hospital. ECG per my interpretation: Indication was weakness and fall. The ECG shows a sinus tachycardia with a rate of 113. There is no ST elevation, no PVCs. There is an old septal infarct. QTc is 455. Continuous Cardiac Monitoring per my interpretation: An order was placed for continuous cardiac monitoring. The monitor shows a rate of 114 with sinus tachycardia. Imaging/x-ray results per my interpretation: Chest x-ray shows some older rib fractures on the right. There was no pneumothorax. Right humerus film shows the proximal humeral head/neck fracture without any humeral head dislocation. The film looks similar to previous films of the right proximal humerus. Bilateral knee films did not show any obvious fracture or dislocation. Chronic Medical/Social conditions affecting care: Advanced age. Care/Management discussed with: Case management, the on-call hospitalist. Level of care consideration(s): After review of the information above and other included data: --I believe the patient requires escalation of care to admission DISPOSITION: Admission Past Med/Surg History Problem List NSTEMI (non-ST elevated myocardial infarction) Elevated troponin (Acute) Closed fracture of proximal end of right humerus (Acute) Contusion of left knee (Acute) Contusion of right knee (Acute) Tachycardia (Acute) Fall (Acute) Weakness (Acute) Fracture of right humerus (Acute ~08/26/25) comminuted displaced and mildly impacted right proximal humeral fracture humeral head Fracture of head of humerus (Acute 08/26/25) Comminuted displaced and mildly impacted right proximal humeral fracture humeral head maintains a normal anatomic relationship with the glenoid fossa. From a fall. Ankle sprain Pain Confusion Swelling of left lower extremity Borderline hypertension Hyperlipidemia Sessile colonic polyp Back pain Osteoporosis Medical History Unable to ambulate Acute pain of right knee Arthritis of right hip Fracture of left distal radius Normal colonoscopy Anterior dislocation of right shoulder Surgical History History of bilateral cataract extraction History of surgery on wrist History of colonoscopy History of root canal procedure No significant past surgical history Family History Mother Labor abnormal Father Heart failure Other Family history non-contributory Denies family history of Ovarian cancer Prostate cancer Diabetes Myocardial infarction Breast cancer Lung cancer Colorectal cancer Stroke Social History Smoking Status: Never smoker Second Hand Exposure: No; Do You Dip or Chew Tobacco: No; Hx Alcohol Use: Yes Alcohol type: wine Alcohol Intake Frequency: 2-3 x/Week Alcohol Intake Frequency Comment: social Hx Substance Use: No Preferred Language: [place]dean Communication Ability: Effective Visual Impairment: Limited Hearing Ability: Normal Multicut Line Operator Required: No Beliefs That Will Affect Care: None marital status: Current Living Situation: Spouse current occupational status: retired How many Children do You have: 3 Feels Safe at Home: Yes Childhood Exposure to Second-Hand Smoke: Yes caffeine: No Dental Care, Regularly: Yes Physical Activity Frequency: Daily Seatbelt Use: always Sunscreen Use: Yes Assistive Devices: Cane Allergies Allergies Allergy/AdvReac Type Severity Reaction Status Date / Time fluconazole Allergy Intermediate Rash Verified 09/06/25 20:55 Home Meds Home Medications Medication Instructions Recorded Confirmed calcium 600 mg (as 2 tab PO QAM 06/17/25 09/06/25 carbonate)-vitamin D3 20 mcg (800 unit) tablet coenzyme Q10 100 mg capsule (Co 100 mg PO DAILY 06/17/25 09/06/25 Q-10) garlic 300 mg capsule 300 mg PO DAILY 06/17/25 09/06/25 potassium chloride 20 mEq oral 20 meq PO DAILY 06/17/25 09/06/25 packet salmon oil 1,000 mg-omega-3 fatty 1 cap PO DAILY 08/26/25 09/06/25 acids 210 mg capsule Macular Health Formula 1 cap PO DAILY 09/06/25 09/06/25 Previous Rx's Medication Instructions Recorded acetaminophen 500 mg tablet 1,000 mg (2 x 500 mg) PO TID PRN 06/15/25 (Tylenol Extra Strength) pain #1 tab furosemide 20 mg tablet (Lasix) 20 mg PO DAILY PRN LE edema #30 06/29/25 tabs Results & Data (ED) Vital Signs Vital Signs - 24 hr 09/06/25 16:52 09/06/25 16:58 09/06/25 16:59 Temperature 36.9 C Temperature Source Oral Pulse Rate 115 H 114 H Pulse Rate [Apical] Respiratory Rate 18 Respiratory Effort / Characteristics Non-Labored Spontaneous Respiratory Depth Normal Respiratory Pattern Regular Blood Pressure 148/79 H Blood Pressure [Left Arm] Blood Pressure Mean 102 Blood Pressure Mean [Left Arm] Pulse Oximetry 94 95 Oxygen Delivery Method Room Air Room Air Sepsis Recent Fever Within 48 Hours No Sepsis New/Unexplained Change in Mental Status No Sepsis Action Taken by Nursing No Action Required 09/06/25 18:01 09/06/25 19:26 09/06/25 20:52 Temperature Temperature Source Pulse Rate 102 H 99 H Pulse Rate [Apical] 102 H Respiratory Rate 16 18 Respiratory Effort / Characteristics Non-Labored Spontaneous Respiratory Depth Normal Respiratory Pattern Blood Pressure 146/91 H Blood Pressure [Left Arm] 152/90 H Blood Pressure Mean 111 Blood Pressure Mean [Left Arm] 110 Pulse Oximetry 95 98 Oxygen Delivery Method Room Air Room Air Sepsis Recent Fever Within 48 Hours Sepsis New/Unexplained Change in Mental Status Sepsis Action Taken by [facility] Medications Current Medication List: was personally reviewed by me Laboratory Data Attestation: I reviewed the patient's lab results. 09/06/25 17:15 09/06/25 17:15 Lab Results 09/06/25 09/06/25 09/06/25 Range/Units 17:15 19:51 20:08 WBC 10.04 (4.8-10.8) K/ul RBC 3.92 L (4.20-5.40) M/uL Hgb 12.0 (12.0-16.0) g/dl Hct 36.4 L (37.0-47.0) % MCV 92.9 (80.0-100.0) fL MCH 30.6 (25.0-34.0) pg MCHC 33.0 (32.0-36.0) g/dL RDW Std Deviation 43.3 (36.4-46.3) fL RDW Coeff of Maurilio 12.8 (11.5-14.5) % Plt Count 271 (130-400) K/uL MPV 9.4 (9.4-12.4) fL Immature Gran % (Auto) 0.6 % Neut % (Auto) 80.9 % Lymph % (Auto) 11.3 % [place] % (Auto) 5.8 % Eos % (Auto) 0.8 % Baso % (Auto) 0.6 % Neut # (Auto) 8.13 H (1.40-6.50) K/uL Lymph # (Auto) 1.13 L (1.20-3.40) K/uL [place] # (Auto) 0.58 (0.11-0.59) K/uL Eos # (Auto) 0.08 (0.00-0.50) K/uL Baso # (Auto) 0.06 (0.00-0.20) K/uL Immature Gran # (Auto) 0.06 (0.01-0.20) K/uL PT 10.9 (9.0-12.0) Seconds INR 1.0 (0.9-1.1) Sodium 141 (136-145) mmol/L Potassium 4.0 (3.5-5.1) mmol/L Chloride 109 H (98-107) mmol/L Carbon Dioxide 20 L (21-32) mmol/L Anion Gap 12 H (3-11) BUN 19 (6-23) mg/dl Creatinine 0.94 (0.6-1.2) mg/dl Est Cr Clr Drug Dosing 38.0 ml/min eGFR 60.21 BUN/Creatinine Ratio 20.2 H (10-20) Glucose 129 H (70-99(Fasting)) mg/dl Calcium 9.2 (8.6-10.3) mg/dl Magnesium 2.0 (1.7-2.4) mg/dl Total Bilirubin 0.6 (0.2-1.0) mg/dl AST 50 H (13-39) U/L ALT 31 (7-52) U/L Alkaline Phosphatase 75 (34-104) U/L Troponin I High Sens 249.3 H* 1885.5 H* D (0-14) pg/ml Total Protein 6.4 (6.0-8.3) gm/dl Albumin 3.5 (3.4-5.0) gm/dl Globulin 2.9 (2.5-4.0) gm/dl Albumin/Globulin Ratio 1.2 (0.9-2) TSH 3.219 (0.300-4.500) uIu/ml Urine Color Yellow Urine Appearance Turbid A (Clear) Urine pH 8.0 H (4.5-7.5) Ur Specific [place] 1.017 (1.000-1.030) Urine Protein Negative (Negative) Urine Glucose (UA) Negative (Negative) Urine Ketones 1+ H (Negative) Urine Blood Negative (Negative) Urine Nitrite Negative (Negative) Urine Bilirubin Negative (Negative) Urine Urobilinogen Negative (Negative) Ur Leukocyte Esterase Negative (Negative) Urine WBC (Auto) 0-5 (0-5) /hpf Urine RBC (Auto) 3-5 H (0-2) /hpf U Hyaline Cast (Auto) 0-2 (0-2) /lpf U Epithel Cells (Auto) 0-2 (0-2) /hpf Urine Bacteria (Auto) None Seen (None Seen) Urine Comment Administered Medications Heparin Sodium/Dextrose (Heparin 12633 Unit/500 Ml D5w) 25,000 units in 500 mls @ 19 mls/hr IV .Q24H [facility]; Protocol Stop: 10/06/25 21:29 Last Admin: 09/06/25 21:42 Dose: 950 units/hr, 19 mls/hr Documented By: TAMIKO Co-signed By: STEFANO Discontinued Medications Heparin Sodium/Dextrose (Heparin Iv Adult Wt-Based Standard *No* Initial Bolus Protocol) 1 each IV ONE STA; Protocol Stop: 09/06/25 21:14 Last Admin: 09/06/25 21:45 Dose: Not Given Documented By: TAMIKO Sodium Chloride (Nss) 500 mls @ 999 mls/hr IV .Q31M ONE Stop: 09/06/25 17:27 Last Infusion: 09/06/25 17:50 Dose: Infused Documented By: Admin: 09/06/25 17:15 Dose: 999 mls/hr Documented By: AYDE Sodium Chloride (Nss) 500 mls @ 999 mls/hr IV .Q31M ONE Stop: 09/06/25 19:26 Last Infusion: 09/06/25 19:45 Dose: Infused Documented By: Admin: 09/06/25 19:13 Dose: 999 mls/hr Documented By: STEFANO Metoprolol Tartrate (Metoprolol Tartrate 1 Mg/Ml Vial) 5 mg IV NOW STA Stop: 09/06/25 21:00 Last Admin: 09/06/25 21:32 Dose: 5 mg Documented By: STEFANO Nitroglycerin (Nitroglycerin 2% Ointment 30gm Tube) 1 inch EXT NOW ONE Stop: 09/06/25 21:00 Last Admin: 09/06/25 21:33 Dose: 1 inch Documented By: STEFANO Imaging Data Radiologist's Impression: Chest X-Ray 09/06/25 16:57 Single frontal view of the chest No comparison Impression Exam slight limited secondary patient rotation. Slight cardiomegaly. Lungs are clear without focal infiltrates or effusions. Comminuted Minimally displaced right proximal humeral fracture. Humeral head maintains a normal anatomic relationship with the glenoid fossa. Left shoulder is unremarkable. Electronically signed by Je Damian 09-06-2025 7:35 PM Humerus X-Ray 09/06/25 16:57 Exam: X-ray right humerus. Reason for exam: Patient fell. Previous humerus fracture. The previous studies: None FINDINGS: Comminuted fractures with some displaced fracture fragments including the greater tuberosity are seen in the proximal humerus. The history does refer to previous fracture although these fracture lines appear acute and ununited. Glenohumeral articulation is not well evaluated. Distal humerus is intact. IMPRESSION: Comminuted fracture proximal humerus which appears to be acute. The glenohumeral articulation is not well evaluated on the views submitted. Further evaluation with multiplanar CT scan of the shoulder is recommended for this patient. Electronically signed by Bharathi Joseph 09-06-2025 7:39 PM Knee X-Ray 09/06/25 16:57 INDICATION: Pain TECHNIQUE: 3 views of the right knee were obtained. COMPARISON: None FINDINGS: No displaced acute osseous process is identified. Mild tricompartmental osteoarthritic changes with small marginal osteophytes most progressed over the medial compartment and over the patellofemoral space. Patellar enthesophytes. No substantial joint fluid. Vascular calcifications IMPRESSION: No displaced acute osseous process is identified. Electronically signed by Ignacio Queen 09-06-2025 7:43 PM Knee X-Ray 09/06/25 16:57 INDICATION: Pain TECHNIQUE: 3 views of the left knee were obtained. COMPARISON: None FINDINGS: No displaced acute osseous process is identified. Mild tricompartmental osteoarthritic changes with small marginal osteophytes most progressed over the medial compartment and over the patellofemoral space. Patellar enthesophytes. No substantial joint fluid. Vascular calcifications IMPRESSION: No displaced acute osseous process is identified. Electronically signed by Ignacio Queen 09-06-2025 7:43 PM Discharge Plan Visit Data Chief Complaint: Fall Stated Complaint: FALL ED Provider: Cordell Holt Discharge Problem: Weakness, Fall, Tachycardia, Contusion of right knee, Contusion of left knee, Closed fracture of proximal end of right humerus, Elevated troponin Patient Disposition: Admitted As Inpatient Condition: Fair Discharge Instructions Interventions: ED Discharge Assessment Last Done: 09/06/25 22:52 Discharge Problem: Fall Qualifiers: Encounter type: initial encounter Qualified Code(s): W19.XXXA - Unspecified fall, initial encounter Contusion of right knee Qualifiers: Encounter type: initial encounter Qualified Code(s): S80.01XA - Contusion of right knee, initial encounter Contusion of left knee Qualifiers: Encounter type: initial encounter Qualified Code(s): S80.02XA - Contusion of left knee, initial encounter Closed fracture of proximal end of right humerus Qualifiers: Encounter type: subsequent encounter Fracture morphology: unspecified fracture morphology Fracture healing: with delayed healing Qualified Code(s): S42.201G - Unspecified fracture of upper end of right humerus, subsequent encounter for fracture with delayed healing
[2025-09-06] MEDS: SODIUM CHLORIDE 0.9% 500 ML IV ONE ×2 (17:15→19:13)
[2025-09-06 17:27] LABS: Hematocrit (blood only) 36.4 % (37.0-47.0); Hemoglobin 12.0 g/dl (12.0-16.0); Immature Granulocytes # (auto) 0.06 K/uL (0.01-0.20); Immature Granulocytes % (auto) 0.6 %; Mean Corpuscular Hemoglobin 30.6 pg (25.0-34.0); Mean Corpuscular Volume 92.9 fL (80.0-100.0); Platelet Count 271 K/uL (130-400); RDW Standard Deviation 43.3 fL (36.4-46.3); Red Blood Count 3.92 M/uL (4.20-5.40); White Blood Count 10.04 K/ul (4.8-10.8)
[2025-09-06 17:44] LABS: Alanine Aminotransferase 31.0 U/L (7-52); Albumin Globulin Ratio 1.2 (0.9-2); Albumin Level 3.5 gm/dl (3.4-5.0); Alkaline Phosphatase 75.0 U/L (34-104); Anion Gap 12.0 (3-11); Bilirubin,Total 0.6 mg/dl (0.2-1.0); Blood Urea Nitrogen 19.0 mg/dl (6-23); Calcium 9.2 mg/dl (8.6-10.3); Carbon Dioxide 20.0 mmol/L (21-32); Chloride 109.0 mmol/L (98-107); Creatinine Clr Calc Pharmacy 38.0 ml/min; Globulin 2.9 gm/dl (2.5-4.0); Glucose 129.0 mg/dl (70-99(Fasting)); Magnesium 2.0 mg/dl (1.7-2.4); Potassium 4.0 mmol/L (3.5-5.1); Sodium 141.0 mmol/L (136-145); Total Protein 6.4 gm/dl (6.0-8.3)
[2025-09-06 17:59] LABS: Thyroid Stimulating Hormone 3.219 uIu/ml (0.300-4.500)
--- NOTE | 2025-09-06 19:35 | XRay Report ---
Single frontal view of the chest No comparison Impression Exam slight limited secondary patient rotation. Slight cardiomegaly. Lungs are clear without focal infiltrates or effusions. Comminuted Minimally displaced right proximal humeral fracture. Humeral head maintains a normal anatomic relationship with the glenoid fossa. Left shoulder is unremarkable. Electronically signed by Je Damian 09-06-2025 7:35 PM
--- NOTE | 2025-09-06 19:40 | XRay Report ---
Exam: X-ray right humerus. Reason for exam: Patient fell. Previous humerus fracture. The previous studies: None FINDINGS: Comminuted fractures with some displaced fracture fragments including the greater tuberosity are seen in the proximal humerus. The history does refer to previous fracture although these fracture lines appear acute and ununited. Glenohumeral articulation is not well evaluated. Distal humerus is intact. IMPRESSION: Comminuted fracture proximal humerus which appears to be acute. The glenohumeral articulation is not well evaluated on the views submitted. Further evaluation with multiplanar CT scan of the shoulder is recommended for this patient. Electronically signed by Bharathi Joseph 09-06-2025 7:39 PM
--- NOTE | 2025-09-06 19:43 | XRay Report ---
INDICATION: Pain TECHNIQUE: 3 views of the right knee were obtained. COMPARISON: None FINDINGS: No displaced acute osseous process is identified. Mild tricompartmental osteoarthritic changes with small marginal osteophytes most progressed over the medial compartment and over the patellofemoral space. Patellar enthesophytes. No substantial joint fluid. Vascular calcifications IMPRESSION: No displaced acute osseous process is identified. Electronically signed by Ignacio Queen 09-06-2025 7:43 PM
--- NOTE | 2025-09-06 19:44 | XRay Report ---
INDICATION: Pain TECHNIQUE: 3 views of the left knee were obtained. COMPARISON: None FINDINGS: No displaced acute osseous process is identified. Mild tricompartmental osteoarthritic changes with small marginal osteophytes most progressed over the medial compartment and over the patellofemoral space. Patellar enthesophytes. No substantial joint fluid. Vascular calcifications IMPRESSION: No displaced acute osseous process is identified. Electronically signed by Ignacio Queen 09-06-2025 7:43 PM
[2025-09-06 20:46] LABS: Appearance Urine Turbid (Clear); Bacteria Urine Automated None Seen (None Seen); Cast Urine Automated 0-2 /lpf (0-2); Epithelial Cell Urine Auto 0-2 /hpf (0-2); Glucose Urine UA Negative (Negative); WBC Urine Automated 0-5 /hpf (0-5)
--- NOTE | 2025-09-06 20:57 | History & Physical Report ---
Date of Service September 06, 2025 Assessment & Plan (1) NSTEMI (non-ST elevated myocardial infarction): (2) Fall: (3) Weakness: (4) Closed fracture of proximal end of right humerus: Plan Patient is an 85-year-old female with a past medical history of recurrent falls, HTN, HLD, chronic venous insufficiency. Patient had a fall resulting in a right humerus fracture that is being managed conservatively. Patient had like shakiness 09/06 and had a recurrent fall falling to her knees. She was unable to get up and called EMS. Diagnostic imaging revealed questionable acute fracture of the right humerus, CT imaging is recommended - however suspect this is the new fx from 08/26. However patient was found to have an initial troponin of 249.3 which up trended to 1885.5. Patient denies any cardiac symptoms. EKG without ischemic changes - will be admitting for NSTEMI. #NSTEMI - patient without any cardiac sx, EKG without ischemic changes. Troponin 249.3 -> 1885.5 with reported "white coat syndrome"/ tachycardia and HTN however given significant rise in troponin will treat as NSTEMI. Patient did just have echocardiogram 07/16/2025 which did not reveal any significant abnormalitiesEF 60 to 65%, moderate AR, mild MR (Was obtained for CHF workup with bilateral lower extremity edema). TSH WNL, electrolytes stable. - Lopressor 5mg UV x 1 on admission, continue prn for tachycardia and HTN - nitropaste 1 inch on admission - Heparin standard drip, no bolus ordered - Troponin q6hr x 3 - lipid panel and A1C with AM labs - repeat echocardiogram ordered - monitor on telemetry - EKG with chest pain as needed - cardiology consulted #Recurrent falls/ambulatory dysfunction/right humerus fracture s/p fall 08/26 resulting in right humerus fracture, recurrent fall 09/06 due to "leg shakiness", possibly 2/2 NSTEMI above. Diagnostic imaging revealed acute humerus fracture however likely the residual fracture from 08/26 as pain is unchanged. is following with [facility] with conservative management for humerus fracture Continue as needed Tylenol Lidoderm patch ordered PT/OT consulted given recurrent falls #chronic venous insufficiencyfollows with vascular surgery, conservative management at this time. Patient reports she does not often take as needed Lasix. Will hold as needed Lasix at this time Continue with teds, promote leg elevation VTE ppx: Heparin drip Dispo: PCU Admission and Anticipated Discharge Date Admission Date: 09/06/25 History of Present Illness Chief Complaint: fall Primary Care Provider: Channing Leggett DO Patient is an 85-year-old female with a past medical history of recurrent falls, HTN, HLD, chronic venous insufficiency. Patient had a fall resulting in a right humerus fracture that is being managed conservatively. Patient had like shakiness 09/06 and had a recurrent fall falling to her knees. She was unable to get up and called EMS. Diagnostic imaging revealed questionable acute fracture of the right humerus, CT imaging is recommended - however suspect this is the new fx from 08/26. However patient was found to have an initial troponin of 249.3 which up trended to 1885.5. Patient denies any cardiac symptoms. Patient seen at bedside. She endorses the above. She stated she was prescribed oxycodone 5 mg every 6 hours after the first fall which she took 2 of did not like how it made her feel so she quit taking it. She has not taken this in several days. She has been managing her pain with Tylenol (uknown dose) and the sling. Today her legs got shaky which has been happening for several days when she felt as though her legs gave out. She fell onto her knees, denies any loss of consciousness, head strike, or anticoagulation use. She could not get up and she may have strained her shoulder trying to push herself. She stated her pain is at baseline. She stated because she has been unable to ambulate well, her l ower extremity edema has acutely worsened however she rarely takes her as needed Lasix. Regarding her elevated troponin, patient denies any chest pain or shortness of breath at the time of the fall. She denies any chest pain, dyspnea, lightheadedness/dizziness, fatigue on exertion or at rest recently. She stated her only home medication she really takes is Tylenol and some supplements. She wishes to be full code. Discussed elevated troponin and likely need to initiate heparin drip, patient agreeable. Allergies Allergy/AdvReac Type Severity Reaction Status Date / Time fluconazole Allergy Intermediate Rash Verified 09/06/25 20:55 Home Medications Medication Instructions Recorded Confirmed Type acetaminophen 500 mg tablet 1,000 mg (2 x 500 mg) PO TID PRN 06/15/25 09/06/25 Rx (Tylenol Extra Strength) pain #1 tab calcium 600 mg (as 2 tab PO QAM 06/17/25 09/06/25 History carbonate)-vitamin D3 20 mcg (800 unit) tablet coenzyme Q10 100 mg capsule (Co 100 mg PO DAILY 06/17/25 09/06/25 History Q-10) garlic 300 mg capsule 300 mg PO DAILY 06/17/25 09/06/25 History potassium chloride 20 mEq oral 20 meq PO DAILY 06/17/25 09/06/25 History packet furosemide 20 mg tablet (Lasix) 20 mg PO DAILY PRN LE edema #30 06/29/2508/26 Rx tabs salmon oil 1,000 mg-omega-3 fatty 1 cap PO DAILY 08/26/25 09/06/25 History acids 210 mg capsule Macular Health Formula 1 cap PO DAILY 09/06/25 09/06/25 History Past Med/Surg History Problem List NSTEMI (non-ST elevated myocardial infarction) Elevated troponin (Acute) Closed fracture of proximal end of right humerus (Acute) Contusion of left knee (Acute) Contusion of right knee (Acute) Tachycardia (Acute) Fall (Acute) Weakness (Acute) Fracture of right humerus (Acute ~08/26/25) comminuted displaced and mildly impacted right proximal humeral fracture humeral head Fracture of head of humerus (Acute 08/26/25) Comminuted displaced and mildly impacted right proximal humeral fracture humeral head maintains a normal anatomic relationship with the glenoid fossa. From a fall. Ankle sprain Pain Confusion Swelling of left lower extremity Borderline hypertension Hyperlipidemia Sessile colonic polyp Back pain Osteoporosis Medical History Unable to ambulate Acute pain of right knee Arthritis of right hip Fracture of left distal radius Normal colonoscopy Anterior dislocation of right shoulder Surgical History History of bilateral cataract extraction History of surgery on wrist History of colonoscopy History of root canal procedure No significant past surgical history Family History Mother Labor abnormal Father Heart failure Other Family history non-contributory Denies family history of Ovarian cancer Prostate cancer Diabetes Myocardial infarction Breast cancer Lung cancer Colorectal cancer Stroke Social History Smoking Status: Never smoker Second Hand Exposure: No; Do You Dip or Chew Tobacco: No; Hx Alcohol Use: Yes Alcohol type: wine Alcohol Intake Frequency: 2-3 x/Week Alcohol Intake Frequency Comment: social Hx Substance Use: No Preferred Language: Czech Communication Ability: Effective Visual Impairment: Limited Hearing Ability: Normal 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 Beliefs That Will Affect Care: None marital status: Current Living Situation: Spouse current occupational status: retired How many Children do You have: 3 Feels Safe at Home: Yes Safety Concerns: Feels Safe At This Time Childhood Exposure to Second-Hand Smoke: Yes caffeine: No Dental Care, Regularly: Yes Physical Activity Frequency: Daily Seatbelt Use: always Sunscreen Use: Yes Assistive Devices: Cane Assistive Devices Comment: "walking pole" Review of Systems Review of Systems: see HPI Physical Exam Physical Exam: The patient is awake, alert and oriented 3, well developed and well nourished, normocephalic and atraumatic, in no acute distress. Non-toxic appearing. HEENT- EOMI, mucous membranes dry. Hearing grossly intact. Heart-normal S1 and S2. No murmurs, rubs or gallops. Lungs-clear bilaterally, no respiratory distress, no accessory muscle use. Abdomen-normal bowel sounds and soft. No ascites noted. Non-tender. Extremities- no clubbing, cyanosis. +2 pitting edema BL LE. Sling to right shoulder with mild healing ecchymosis. Psychiatric-normal affect. Results & Data Results & Data Vital Signs (Past 12 Hours) Vital Signs Temp Pulse Pulse Resp BP BP Pulse Ox 09/06/25 19:26 102 H 18 152/90 H 98 09/06/25 18:01 102 H 16 146/91 H 95 09/06/25 16:59 114 H 09/06/25 16:58 95 09/06/25 16:52 36.9 C 115 H 18 148/79 H 94 O2 Del Method 09/06/25 19:26 Room Air 09/06/25 18:01 Room Air 09/06/25 16:59 09/06/25 16:58 Room Air 09/06/25 16:52 Room Air Laboratory Results Reviewed CBC, CMP, UA, troponin, mag, TSH ordered PT/INR Diagnostic Findings reviewed BL knee XR, humerus XR, CXR Medications Administered ED - 1L NSS bolus admission - heparin drip no bolus, lopressor 5mg IV, nitropaste 1 inch ECG Additional Comments: sinus tachycardia, rate 113, no ischemic changes repeat similar - sinus tachycardia, rate 101, no ischemic changes Code Status & VTE Plan Code Status full code VTE Prophylaxis Plan VTE Prophylaxis will be ordered: Yes Supervising Physician Co-Signing Physician Notes Attending addendum: I have physically seen this patient, have supervised the DELBERT's activities, and agree with the H&P unless as otherwise noted. Assessment and Plan: The patient is an 85-year-old female with a past medical history including recurrent falls, hypertension, hyperlipidemia, and chronic venous insufficiency. She is status post fall , resulting in a right humerus fracture that is being managed conservatively. Patient reports on 09/06 she felt shaky, and had a fall to her knees. She was unable to get up and called EMS. Humerus x-ray suggestive of possible right humerus fracture, with CT scan read as new fracture compared to 08/26. Laboratories initial troponin was 249.3, with follow-up 1885.5. Patient without any chest pain shortness of breath or other cardiac symptoms, EKG without ischemic changes. Patient will be evaluated for NSTEMI. NSTEMI- Initial troponin 249.3 with follow-up 1885.5 EKG without acute changes Patient is tachycardic and has elevated blood pressure Lopressor 5 mg IV x 1 now, and continue with parameters for elevated heart rate and blood pressure Nitropaste 1 inch to anterior chest wall every 6 hours Heparin drip per protocol Troponin every 6 hours x 3 Fasting lipid panel and hemoglobin A1c with a.m. labs The patient will be admitted to telemetry for serial cardiac enzymes, serial EKG's, cardiac rhythm monitoring Most recent echocardiogram on 07/16/2025 with EF 60 to 65%, moderate AR, mild MR. Consult cardiology Recurrent falls/ambulatory dysfunction/right humerus fracture- Consult orthopedic surgery to assess right humerus fracture Acetaminophen 1 g IV every 8 hours as needed for mild pain or fever Lidoderm patch Will need PT/OT Remaining orders and notations as noted PG Care Time/CCT Total # of Minutes Spent Total Time Spent with Patient: Total time spent is greater than 50% in coordination of care (as documented) at patient's floor/unit and/or counseling patient: Coding Level of Care Code 63892 INT INP/OBS CARE MIN Diagnoses NSTEMI (non-ST elevated myocardial infarction) I21.4 Fall W19.XXXA Encounter type: initial encounter Weakness R53.1 Closed fracture of proximal end of right humerus S42.201G Encounter type: subsequent encounter Fracture healing: with delayed healing Fracture morphology: unspecified fracture morphology (2) Fall Encounter type: initial encounter Qualified Code(s): W19.XXXA - Unspecified fall, initial encounter (4) Closed fracture of proximal end of right humerus Encounter type: subsequent encounter Fracture healing: with delayed healing Fracture morphology: unspecified fracture morphology Qualified Code(s): S42.201G - Unspecified fracture of upper end of right humerus, subsequent encounter for fracture with delayed healing
[2025-09-06] MEDS: METOPROLOL TARTRATE 1 MG/ML VIAL IV STA (21:32)
[2025-09-06] MEDS: NITROGLYCERIN 2% OINTMENT 30GM TUBE EXT ONE (21:33)
[2025-09-06] MEDS: HEPARIN 25000 UNIT/500 ML D5W 25,000 UNITS/500 ML BAG IV SCH (21:42)
[2025-09-06] MEDS: Heparin IV Adult Wt-Based Standard *NO* INITIAL Bolus Protocol IV STA (21:45)
[2025-09-06 21:46] LABS: INR 1.0 (0.9-1.1); Prothrombin Time 10.9 Seconds (9.0-12.0)
[2025-09-06] MEDS ORDERED: METOPROLOL TARTRATE 1 MG/ML VIAL IV PRN (23:36)
[2025-09-06] MEDS ORDERED: ONDANSETRON INJ 2 MG/ML 2 ML VIAL IV PRN (23:36)
[2025-09-06] MEDS: ACETAMINOPHEN 325 MG TAB PO PRN (23:56)
[2025-09-06] MEDS: MELATONIN 3 MG TAB PO PRN (23:56)
[2025-09-07 03:57] LABS: Hematocrit (blood only) 32.1 % (37.0-47.0); Hemoglobin 11.1 g/dl (12.0-16.0); Immature Granulocytes # (auto) 0.02 K/uL (0.01-0.20); Immature Granulocytes % (auto) 0.3 %; Mean Corpuscular Hemoglobin 31.8 pg (25.0-34.0); Mean Corpuscular Volume 92.0 fL (80.0-100.0); Platelet Count 227 K/uL (130-400); RDW Standard Deviation 42.0 fL (36.4-46.3); Red Blood Count 3.49 M/uL (4.20-5.40); White Blood Count 7.29 K/ul (4.8-10.8)
[2025-09-07 04:14] LABS: Alanine Aminotransferase 30.0 U/L (7-52); Albumin Globulin Ratio 1.0 (0.9-2); Albumin Level 2.9 gm/dl (3.4-5.0); Alkaline Phosphatase 67.0 U/L (34-104); Anion Gap 4.0 (3-11); Bilirubin,Total 0.8 mg/dl (0.2-1.0); Blood Urea Nitrogen 14.0 mg/dl (6-23); Calcium 8.4 mg/dl (8.6-10.3); Carbon Dioxide 24.0 mmol/L (21-32); Chloride 111.0 mmol/L (98-107); Cholesterol 131.0 mg/dl (0-200); Creatinine Clr Calc Pharmacy 46.6 ml/min; Globulin 2.8 gm/dl (2.5-4.0); Glucose 105.0 mg/dl (70-99(Fasting)); HDL Cholesterol 62.0 mg/dl; Magnesium 1.9 mg/dl (1.7-2.4); Potassium 3.5 mmol/L (3.5-5.1); Sodium 139.0 mmol/L (136-145); Total Protein 5.7 gm/dl (6.0-8.3); Triglycerides 49.0 mg/dl (0-150)
[2025-09-07 04:21] LABS: ANTI-Xa, UFH(UnfractionatedHep 0.36 IU/ml (0.3-0.7)
--- NOTE | 2025-09-07 07:34 | Hospitalist Progress Note ---
Date of Service September 07, 2025 Assessment & Plan (1) NSTEMI (non-ST elevated myocardial infarction): (2) Closed fracture of proximal end of right humerus: (3) Fall: (4) Weakness: Plan Patient is an 85-year-old female with a past medical history of recurrent falls, HTN, HLD, chronic venous insufficiency. Patient had a fall resulting in a right humerus fracture that is being managed conservatively. Pt transported by EMS to ER, Diagnostic imaging revealed questionable acute fracture of the right humerus. The patient was found to have an initial troponin of 249.3 which up trended to 1885.5. then [id number] Patient denies any cardiac symptoms/chest pain. EKG without ischemic changes - will be admitting for NSTEMI. #NSTEMI - patient without any cardiac sx, EKG without ischemic changes. Troponin elevated not yet peaked. - Lopressor 5mg UV x 1 on admission, continue prn for tachycardia and HTN - nitropaste 1 inch on admission now discontinued - Heparin standard drip, started but with long bone fracture and no symptoms or ecg changes will stop heparin, use low dose aspirin - Troponin has peaked and now downtrend - repeat echocardiogram ordered - cardiology consulted recommend aspirin consider statin and multiday event monitor after discharge #Recurrent falls/ambulatory dysfunction/right humerus fracture s/p fall 08/26 resulting in right humerus fracture, recurrent fall 09/06 due to "leg shakiness", possibly 2/2 NSTEMI above. Diagnostic imaging revealed acute humerus fracture however likely the residual fracture from 08/26 as pain is unchanged. is following with [facility] with conservative management for humerus fracture Continue as needed Tylenol Lidoderm patch ordered PT/OT consulted given recurrent falls, likely need rehab #chronic venous insufficiencyfollows with vascular surgery, conservative management at this time. Patient reports she does not often take as needed Lasix. Will hold as needed Lasix at this time Continue with teds, promote leg elevation VTE ppx: heparin sc Admission and Anticipated Discharge Date Admission Date: September 06, 2025 Subjective pt pain is controlled she has issues with leg weakness prior to admission and shakeyness that caused h er to fall. Physical Exam Physical Exam: has right arm in a sling, good sensation and cap refill to hand cardiac exam is regular with murmur legs are with good strength and sensation in bed Results & Data Results & Data Vital Signs (Past 12 Hours) Vital Signs Temp Pulse Pulse Resp BP BP Pulse Ox 09/06/25 23:50 93 H 161/93 H 09/06/25 23:36 09/06/25 23:36 09/06/25 23:36 97.7 F 93 H 18 161/93 H 98 09/06/25 23:19 97.9 F 93 H 16 161/93 H 98 09/06/25 21:57 79 16 115/68 99 09/06/25 21:32 99 H 161/87 H 09/06/25 20:52 99 H Pulse Ox O2 Del Method O2 Del Method 09/06/25 23:50 09/06/25 23:36 Room Air 09/06/25 23:36 98 Room Air 09/06/25 23:36 Room Air 09/06/25 23:19 Room Air 09/06/25 21:57 Room Air 09/06/25 21:32 09/06/25 20:52 Laboratory Results reviewed cbc stable reviewed chemsistry stable x phos slighlty low, nutrition slightly low troponin peaked and now downtrending PG Care Time/CCT Total # of Minutes Spent Total Time Spent with Patient: Total time spent is greater than 50% in coordination of care (as documented) at patient's floor/unit and/or counseling patient: Coding Level of Care Code 37039 SUB INP/OBS CARE 3/50MIN Diagnoses NSTEMI (non-ST elevated myocardial infarction) I21.4 Closed fracture of proximal end of right humerus S42.201G Encounter type: subsequent encounter Fracture healing: with delayed healing Fracture morphology: unspecified fracture morphology Fall W19.XXXA Encounter type: initial encounter Weakness R53.1 (2) Closed fracture of proximal end of right humerus Encounter type: subsequent encounter Fracture healing: with delayed healing Fracture morphology: unspecified fracture morphology Qualified Code(s): S42.201G - Unspecified fracture of upper end of right humerus, subsequent encounter for fracture with delayed healing (3) Fall Encounter type: initial encounter Qualified Code(s): W19.XXXA - Unspecified fall, initial encounter
[2025-09-07 08:09] LABS: Hemoglobin A1C 5.1 % (4.5-5.6)
[2025-09-07] MEDS: LIDOCAINE 5% 1 PATCH TD SCH (08:11)
[2025-09-07] MEDS: ASPIRIN 81 MG ECTAB PO SCH (08:12)
--- NOTE | 2025-09-07 09:10 | Cardiology Consultation ---
Date of Consultation September 07, 2025 Assessment & Plan (1) Elevated troponin: (2) Tachycardia: (3) Borderline hypertension: Plan 1. Elevated troponin: Her troponin elevation is worrisome and the trend is suggestive of an acute coronary event, however she is asymptomatic, the electrocardiogram does not show it and her echo does not show a significant abnormality. I am concerned that she has coronary artery disease and I mentioned that to her. She would like me to discuss this with her who went home, he will be back in later today. I will discuss it with him at that time and determine a course of action. Options include no further cardiac evaluation despite the likelihood that she has coronary artery disease (this is not unreasonable considering that she did not have symptoms and invasive treatment has only been demonstrated to be beneficial for symptoms except in certain relatively infrequent occasions) in which case I would recommend treating her for coronary disease, medical therapy as noted or further testing such as stress testing to see if she has identifiable ischemia. 2. Tachycardia: She was tachycardic on presentation but it appears to be secondary to her presentation, not an abnormal rhythm. Her heart rate has dropped back to normal this morning. She is not on any outpatient medications to control heart rate therefore I think this is appropriate not abnormal. 3. Hypertension: Her blood pressure appears somewhat labile but has for the most part been elevated in the hospital, although this morning's reading is not. History of Present Illness Reason for Consultation: Elevated troponin Attending Physician: Channing Tanner MD History of Present Illness This is an 85-year-old woman with a history of hypertension, hyperlipidemia, chronic venous insufficiency and recurrent falls. She fell on September 06, 2025 and fell to her knees but was unable to get up. She denies cardiovascular symptoms however her initial troponin was 249 which increased to 1885 about 2 hours later, and increased to 2880 around 10 hours after presentation. Her electrocardiogram on presentation showed sinus tachycardia at 112 bpm, there were no clear acute changes. An electrocardiogram about 4 hours later was similar but the heart rate had dropped to around 100. An echocardiogram had been done July 16, 2025 which showed normal left ventricular size and function with no wall motion abnormalities. Moderate aortic regurgitation was identified. I reviewed a repeat echocardiogram this admission, her left ventricular function looks good and I do not see any obvious wall motion abnormalities. A cholesterol panel was done this morning and it is quite good, her total cholesterol is 131, her HDL is 62 therefore her non-HDL cholesterol is only 69. I discussed her symptoms on presentation, she maintains that she tripped and fell rather than having presyncope or loss of consciousness. She also maintains that she had no cardiovascular symptoms on presentation, either palpitations or chest discomfort. She is relatively active (perhaps more active than she should be outside of her house given her instability) and denies cardiovascular symptoms. Allergies Allergy/AdvReac Type Severity Reaction Status Date / Time fluconazole Allergy Intermediate Rash Verified 09/06/25 20:55 Home Medications Medication Instructions Recorded Confirmed Type acetaminophen 500 mg tablet 1,000 mg (2 x 500 mg) PO TID PRN 06/15/25 09/06/25 Rx (Tylenol Extra Strength) pain #1 tab calcium 600 mg (as 2 tab PO QAM 06/17/25 09/06/25 History carbonate)-vitamin D3 20 mcg (800 unit) tablet coenzyme Q10 100 mg capsule (Co 100 mg PO DAILY 06/17/25 09/06/25 History Q-10) garlic 300 mg capsule 300 mg PO DAILY 06/17/25 09/06/25 History potassium chloride 20 mEq oral 20 meq PO DAILY 06/17/25 09/06/25 History packet furosemide 20 mg tablet (Lasix) 20 mg PO DAILY PRN LE edema #30 06/29/25 09/06/25 Rx tabs salmon oil 1,000 mg-omega-3 fatty 1 cap PO DAILY 08/26/25 09/06/25 History acids 210 mg capsule Macular Health Formula 1 cap PO DAILY 09/06/25 09/06/25 History Patient History Medical History Unable to ambulate Acute pain of right knee Arthritis of right hip Fracture of left distal radius Normal colonoscopy Anterior dislocation of right shoulder Surgical History History of bilateral cataract extraction History of surgery on wrist History of colonoscopy History of root canal procedure No significant past surgical history Family History Mother Labor abnormal Father Heart failure Other Family history non-contributory Denies family history of Ovarian cancer Prostate cancer Diabetes Myocardial infarction Breast cancer Lung cancer Colorectal cancer Stroke Social History Smoking Status: Never smoker Second Hand Exposure: No; Do You Dip or Chew Tobacco: No; Hx Alcohol Use: Yes Alcohol type: wine Alcohol Intake Frequency: 2-3 x/Week Alcohol Intake Frequency Comment: social Hx Substance Use: No Preferred Language: [place] Communication Ability: Effective Visual Impairment: Limited Hearing Ability: Normal Cutter Machine Tender Required: No Beliefs That Will Affect Care: None marital status: Current Living Situation: Spouse current occupational status: retired How many Children do You have: 3 Feels Safe at Home: Yes Safety Concerns: Feels Safe At This Time Childhood Exposure to Second-Hand Smoke: Yes caffeine: No Dental Care, Regularly: Yes Physical Activity Frequency: Daily Seatbelt Use: always Sunscreen Use: Yes Assistive Devices: Glasses and Other Assistive Devices Comment: "walking pole" Review of Systems Review of Systems: All systems reviewed & are unremarkable except as noted in HPI & below Physical Exam Physical Exam: Constitutional: Alert, cooperative and in no distress. She is sitting on the side of her bed. HEENT: Unremarkable Neck: No jugular venous distention, carotid pulses are normal and equal bilaterally without bruits. Pulmonary: Clear to auscultation bilaterally. Cardiac: Regular rhythm with no murmur, gallop or rub. Abdomen: Soft, nontender with normal bowel sounds. Extremities: No edema. Neurologic: No focal findings. Gait was not tested, physical therapy is present. Skin: No rash or petechiae. Results & Data Vital Signs (Past 12 Hours) Vital Signs Temp Pulse Pulse Resp BP BP Pulse Ox 09/07/25 09:04 87 09/07/25 07:54 36.9 C 88 23 103/59 L 95 09/07/25 07:51 09/06/25 23:50 93 H 161/93 H 09/06/25 23:36 09/06/25 23:36 09/06/25 23:36 36.5 C 93 H 18 161/93 H 98 09/06/25 23:19 36.6 C 93 H 16 161/93 H 98 09/06/25 21:57 79 16 115/68 99 09/06/25 21:32 99 H 161/87 H Pulse Ox O2 Del Method O2 Del Method 09/07/25 09:04 09/07/25 07:54 Room Air 09/07/25 07:51 Room Air 09/06/25 23:50 09/06/25 23:36 Room Air 09/06/25 23:36 98 Room Air 09/06/25 23:36 Room Air 09/06/25 23:19 Room Air 09/06/25 21:57 Room Air 09/06/25 21:32 Laboratory Results Cardiac Enzymes 09/06/25 09/06/25 09/07/25 Range/Units 17:15 19:51 03:32 AST 50 H 51 H (13-39) U/L Troponin I High Sens 249.3 H* 1885.5 H* D 2879.2 H* D (0-14) pg/ml Coagulation 09/06/25 Range/Units 17:15 PT 10.9 (9.0-12.0) Seconds Lipids 09/07/25 Range/Units 03:32 Triglycerides 49 (0-150) mg/dl Cholesterol 131 (0-200) mg/dl HDL Cholesterol 62 mg/dl Cholesterol/HDL Ratio 2.1 (0-5) CBC 09/06/25 09/07/25 Range/Units 17:15 03:32 WBC 10.04 7.29 (4.8-10.8) K/ul RBC 3.92 L 3.49 L (4.20-5.40) M/uL Hgb 12.0 11.1 L (12.0-16.0) g/dl Hct 36.4 L 32.1 L (37.0-47.0) % Plt Count 271 227 (130-400) K/uL Neut # (Auto) 8.13 H 5.17 (1.40-6.50) K/uL Lymph # (Auto) 1.13 L 1.37 (1.20-3.40) K/uL [place] # (Auto) 0.58 0.67 H (0.11-0.59) K/uL Eos # (Auto) 0.08 0.02 (0.00-0.50) K/uL Baso # (Auto) 0.06 0.04 (0.00-0.20) K/uL Comprehensive Metabolic Panel 09/06/25 09/07/25 Range/Units 17:15 03:32 Sodium 141 139 (136-145) mmol/L Potassium 4.0 3.5 (3.5-5.1) mmol/L Chloride 109 H 111 H (98-107) mmol/L Carbon Dioxide 20 L 24 (21-32) mmol/L BUN 19 14 (6-23) mg/dl Creatinine 0.94 0.72 (0.6-1.2) mg/dl Glucose 129 H 105 H (70-99(Fasting)) mg/dl Calcium 9.2 8.4 L (8.6-10.3) mg/dl AST 50 H 51 H (13-39) U/L ALT 31 30 (7-52) U/L Alkaline Phosphatase 75 67 (34-104) U/L Total Protein 6.4 5.7 L (6.0-8.3) gm/dl Albumin 3.5 2.9 L (3.4-5.0) gm/dl Intake and Output 09/06/25 09/07/25 09/07/25 22:59 06:59 14:59 Intake Total 1000 / 1153.9 153.9 / 1153.9 34.517 / 34.517 Output Total 250 / 250 Balance 1000 / 903.9 -96.1 / 903.9 34.517 / 34.517 Intake: IV 1000 / 1153.9 153.9 / 1153.9 34.517 / 34.517 Heparin 24922 Unit/500 ml D5w 153.9 / 153.9 34.517 / 34.517 25,000 units In 500 ml @ 950 UNITS/HR 19 mls/hr IV .Q24H ASHLEY Rx#:[id number] Sodium Chloride 0.9% 500 ml @ 1000 / 1000 999 mls/hr IV .Q31M ONE Rx#: [id number] Output: Urine Amount (Catheter) 250 / 250 External 250 / 250 Other: # Unmeasured Voids 1 Weight 67.8 kg 59.2 kg Weight Measurement Method [facility] Diagnostic Findings Telemetry: Sinus rhythm, rate 80 to 90 bpm. PG Care Time/CCT Total # of Minutes Spent Total Time Spent with Patient: Total time spent is greater than 50% in coordination of care (as documented) at patient's floor/unit and/or counseling patient: Coding Level of Care Code 67548 INT INP/OBS CARE 3/75MIN Diagnoses Elevated troponin R79.89 Tachycardia R00.0 Borderline hypertension R03.0
--- NOTE | 2025-09-07 12:40 | XCELERA ---
[id number]
--- NOTE | 2025-09-07 15:31 | Electrocardiogram Report ---
Test Reason : Blood Pressure : */* mmHG Vent. Rate : 113 BPM Atrial Rate : 113 BPM P-R Int : 174 ms QRS Dur : 88 ms QT Int : 332 ms P-R-T Axes : 71 30 36 degrees QTcB Int : 455 ms Sinus tachycardia Septal infarct (cited on or before 10-Jan-2019) Abnormal ECG When compared with ECG of 10-Jan-2019 14:05, Vent. rate has increased by 37 bpm Confirmed by Mayank Larios ([id number]) on 09/07/2025 3:30:56 PM Referred By: REFERRED SELF Confirmed By: Mayank Larios
--- NOTE | 2025-09-07 15:38 | Electrocardiogram Report ---
Test Reason : Blood Pressure : */* mmHG Vent. Rate : 101 BPM Atrial Rate : 101 BPM P-R Int : 186 ms QRS Dur : 92 ms QT Int : 356 ms P-R-T Axes : 67 32 51 degrees QTcB Int : 461 ms Sinus tachycardia Otherwise normal ECG When compared with ECG of 06-Sep-2025 16:58, (unconfirmed) No significant change was found Confirmed by Mayank Larios ([id number]) on 09/07/2025 3:38:23 PM Referred By: REFERRED SELF Confirmed By: Mayank Larios
[2025-09-07] MEDS: HEPARIN SOD 5,000 UNIT/0.5 ML VIAL SQ SCH (20:58)
[2025-09-07] MEDS: REMOVE LIDODERM PATCH SCH (20:58)
--- NOTE | 2025-09-08 07:37 | Hospitalist Progress Note ---
Date of Service September 08, 2025 Assessment & Plan (1) NSTEMI (non-ST elevated myocardial infarction): (2) Fall: (3) Weakness: (4) Closed fracture of proximal end of right humerus: Plan Plan Patient is an 85-year-old female with a past medical history of recurrent falls, HTN, HLD, chronic venous insufficiency. Patient had a fall resulting in a right humerus fracture that is being managed conservatively. Pt transported by EMS to ER, Diagnostic imaging revealed questionable acute fracture of the right humerus. The patient was found to have an initial troponin of 249.3 which up trended to 3000, now downward trend. Patient denies any cardiac symptoms/chest pain. EKG without ischemic changes - admitting for NSTEMI no planned intervention per cardiology. #NSTEMI - patient without any cardiac sx, EKG without ischemic changes. Troponin elevated has now peaked and receded - Heparin standard drip, started but with long bone fracture and no symptoms or ecg changes will stop heparin, use low dose aspirin - Troponin peaked around 3000 not completely convinced this elevation of troponin was cardiac event and more related to her fall - repeat echocardiogram preserved ejection fraction no regional wall motion abnormalities - cardiology consulted recommend aspirin consider statin and multiday event monitor after discharge #Recurrent falls/ambulatory dysfunction/right humerus fracture s/p fall 08/26 resulting in right humerus fracture, recurrent fall 09/06 due to "leg shakiness", possibly 2/2 NSTEMI above. Diagnostic imaging revealed acute humerus fracture however likely the residual fracture from 08/26 as pain is unchanged. is following with [facility] with conservative management for humerus fracture Continue as needed Tylenol Lidoderm patch ordered PT/OT consulted given recurrent falls recommends rehab postdischarge Patient feels a large part of her leg shakiness is anxiety will begin low-dose Zoloft therapy after education of discussion about medication and side effects #chronic venous insufficiencyfollows with vascular surgery, conservative management at this time. Patient reports she does not often take as needed Lasix. Will hold as needed Lasix at this time Continue with teds, promote leg elevation VTE ppx: Subcu hep Admission and Anticipated Discharge Date Admission Date: September 06, 2025 Subjective Patient very nervous and anxious admits to anxiety feels that this is a component of her gait instability and falls. No further chest pain shortness of breath. Agreeable to start antidepressant to help with her anxiety. at the bedside and updated. Physical Exam Physical Exam: Pleasant female pressured speech bruising of her right shoulder arm in a sling lidocaine patch on her right shoulder Cardiac exam appears to be regular without murmurs close rubs or gallops lungs are clear Neurologic exam to her hand shows intact sensation and strength Results & Data Results & Data Vital Signs (Past 12 Hours) Vital Signs Temp Pulse Pulse Resp BP Pulse Ox O2 Del Method 09/08/25 07:30 78 09/08/25 03:38 98.2 F 87 18 136/73 93 Room Air 09/07/25 23:51 97.7 F 85 18 136/69 96 Room Air 09/07/25 23:36 09/07/25 21:43 91 H O2 Del Method 09/08/25 07:30 09/08/25 03:38 09/07/25 23:51 09/07/25 23:36 Room Air 09/07/25 21:43 Laboratory Results Reviewed chemistry Reviewed repeat troponin with downward trend PG Care Time/CCT Total # of Minutes Spent Total Time Spent with Patient: Total time spent is greater than 50% in coordination of care (as documented) at patient's floor/unit and/or counseling patient: Coding Level of Care Code 70261 SUB INP/OBS CARE 3/50MIN Diagnoses NSTEMI (non-ST elevated myocardial infarction) I21.4 Fall W19.XXXA Encounter type: initial encounter Weakness R53.1 Closed fracture of proximal end of right humerus S42.201G Encounter type: subsequent encounter Fracture healing: with delayed healing Fracture morphology: unspecified fracture morphology (2) Fall Encounter type: initial encounter Qualified Code(s): W19.XXXA - Unspecified fall, initial encounter (4) Closed fracture of proximal end of right humerus Encounter type: subsequent encounter Fracture healing: with delayed healing Fracture morphology: unspecified fracture morphology Qualified Code(s): S42.201G - Unspecified fracture of upper end of right humerus, subsequent encounter for fracture with delayed healing
[2025-09-08 08:59] LABS: Anion Gap 7.0 (3-11); Blood Urea Nitrogen 13.0 mg/dl (6-23); Calcium 8.4 mg/dl (8.6-10.3); Carbon Dioxide 23.0 mmol/L (21-32); Chloride 110.0 mmol/L (98-107); Creatinine Clr Calc Pharmacy 49.8 ml/min; Glucose 121.0 mg/dl (70-99(Fasting)); Potassium 3.5 mmol/L (3.5-5.1); Sodium 140.0 mmol/L (136-145)
[2025-09-08] MEDS: DOCUSATE SODIUM 100 MG CAP PO PRN (10:53)
--- NOTE | 2025-09-08 11:36 | Cardiology Progress Note ---
Date of Service September 08, 2025 Assessment & Plan (1) Elevated troponin: (2) Tachycardia: (3) Borderline hypertension: (4) Fall: Plan 1. Elevated troponin: Her troponin elevation is worrisome and the trend is suggestive of an acute coronary event, the level fluctuated somewhat but is now clearly dropping. However she is asymptomatic, the electrocardiogram does not show ischemia and her echo does not show a significant wall motion abnormality. Options include no further cardiac evaluation despite the likelihood that she has coronary artery disease (this is not unreasonable considering that she does not have symptoms and invasive treatment has only been demonstrated to be beneficial for symptom relief except in certain relatively infrequent occasions) in which case I would recommend treating her for coronary disease with medical therapy or further testing such as stress testing to see if she has identifiable ischemia. We feel the best option is to treat her for ischemia and also potentially look for an arrhythmia as a cause of her troponin elevation. 2. Tachycardia: She was tachycardic on presentation but it appears to be sinus tachycardia secondary to her fall, not an abnormal rhythm. Her heart rate has dropped back to normal. She is not on any outpatient medications to control heart rate therefore I think this tachycardia is appropriate not abnormal. It is possible we missed a significant arrhythmia however, it is possible an arrhythmia is causing her falls and potentially the enzyme elevation. 3. Hypertension: Her blood pressure appears somewhat labile but has for the most part been acceptable. 4. Fall: She describes mechanical falls, I think it is conceivable that she has an arrhythmia (which could be tachycardia such as atrial fibrillation or bradycardia such as heart block or pauses) causing both the falling and potentially the troponin elevation. I would plan on a 30-day outpatient monitor. I believe she is being sent to a rehab facility but they would not have monitoring but I think she could wear a monitor in the facility. We can probably arrange that before she goes. Admission and Anticipated Discharge Date Admission Date: September 06, 2025 Subjective Today she feels well, apparently her gait disturbance which she feels creates her falls is intermittent although I cannot get an idea of the frequency of the instability. She has not been out of bed and has not experienced that since admission. She does not have any cardiovascular symptoms. Physical Exam Physical Exam: Constitutional: Alert, cooperative and in no distress. She is eating lunch in her bed. HEENT: Unremarkable Neck: No jugular venous distention, carotid pulses are normal and equal bilaterally without bruits. Pulmonary: Clear to auscultation bilaterally. Cardiac: Regular rhythm with no murmur, gallop or rub. Abdomen: Soft, nontender with normal bowel sounds. Extremities: No edema. Neurologic: No focal findings. Gait was not tested. Skin: No rash or petechiae. Results & Data Vital Signs (Past 12 Hours) Vital Signs Temp Pulse Pulse Resp BP Pulse Ox O2 Del Method 09/08/25 11:07 36.9 C 88 23 124/73 95 Room Air 09/08/25 09:00 Room Air 09/08/25 08:23 37.2 C 102 H 23 99/57 L 93 Room Air 09/08/25 07:30 78 09/08/25 03:38 36.8 C 87 18 136/73 93 Room Air 09/07/25 23:51 36.5 C 85 18 136/69 96 Room Air 09/07/25 23:36 O2 Del Method 09/08/25 11:07 09/08/25 09:00 09/08/25 08:23 09/08/25 07:30 09/08/25 03:38 09/07/25 23:51 09/07/25 23:36 Room Air Laboratory Results Cardiac Enzymes 09/07/25 09/08/25 Range/Units 14:50 08:03 Troponin I High Sens 3066.3 H* D 1674.6 H* D (0-14) pg/ml Comprehensive Metabolic Panel 09/08/25 Range/Units 08:03 Sodium 140 (136-145) mmol/L Potassium 3.5 (3.5-5.1) mmol/L Chloride 110 H (98-107) mmol/L Carbon Dioxide 23 (21-32) mmol/L BUN 13 (6-23) mg/dl Creatinine 0.67 (0.6-1.2) mg/dl Glucose 121 H (70-99(Fasting)) mg/dl Calcium 8.4 L (8.6-10.3) mg/dl Intake and Output 09/07/25 09/08/25 09/08/25 22:59 06:59 14:59 Intake Total 120 / 394.517 Output Total 100 / 100 Balance 120 / 294.517 -100 / 294.517 Intake: Oral 120 / 360 Output: Urine Amount (Catheter) 100 / 100 External 100 / 100 Other: # Unmeasured Voids 1 PG Care Time/CCT Total # of Minutes Spent Total Time Spent with Patient: Total time spent is greater than 50% in coordination of care (as documented) at patient's floor/unit and/or counseling patient: Coding Level of Care Code 12041 SUB INP/OBS CARE 2/35MIN Diagnoses Elevated troponin R79.89 Tachycardia R00.0 Borderline hypertension R03.0 Fall W19.XXXA Encounter type: initial encounter (4) Fall Encounter type: initial encounter Qualified Code(s): W19.XXXA - Unspecified fall, initial encounter
[2025-09-08] MEDS: SERTRALINE HCL 50 MG TABLET PO SCH (20:48)
[2025-09-09] MEDS: DOCUSATE SODIUM 100 MG CAP PO SCH (08:50)
[2025-09-09] MEDS: METOPROLOL TARTRATE 25 MG TAB PO SCH (08:50)
--- NOTE | 2025-09-09 11:50 | Cardiology Progress Note ---
Date of Service September 09, 2025 Assessment & Plan (1) Elevated troponin: (2) Tachycardia: (3) Borderline hypertension: (4) Fall: Plan 1. Elevated troponin: Her troponin elevation is worrisome and the trend is suggestive of an acute coronary event, the level fluctuated somewhat but is now clearly dropping. However she is asymptomatic, the electrocardiogram does not show ischemia and her echo does not show a significant wall motion abnormality. Options include no further cardiac evaluation despite the likelihood that she has coronary artery disease (this is not unreasonable considering that she does not have symptoms and invasive treatment has only been demonstrated to be beneficial for symptom relief except in certain relatively infrequent occasions) in which case I would recommend treating her for coronary disease with medical therapy or further testing such as stress testing to see if she has identifiable ischemia. We feel the best option is to treat her for ischemia and also potentially look for an arrhythmia as a cause of her troponin elevation. 2. Tachycardia: She was tachycardic on presentation but it appears to be sinus tachycardia secondary to her fall, not an abnormal rhythm. Her heart rate has dropped back to normal. She is not on any outpatient medications to control heart rate therefore I think this tachycardia is appropriate not abnormal. It is possible we missed a significant arrhythmia however, it is possible an arrhythmia is causing her falls and potentially the enzyme elevation. 3. Hypertension: Her blood pressure appears somewhat labile but has for the most part been acceptable. 4. Fall: She describes mechanical falls, I think it is conceivable that she has an arrhythmia (which could be tachycardia such as atrial fibrillation or bradycardia such as heart block or pauses) causing both the falling and potentially the troponin elevation. I would plan on a 30-day outpatient monitor. I believe she is being sent to a rehab facility but they would not have monitoring but I think she could wear a monitor in the facility. We can probably arrange that before she goes, which I understand is likely tomorrow. Admission and Anticipated Discharge Date Admission Date: September 06, 2025 Subjective She is feeling well today, her is present at her bedside and she is in bed. She seems to be forgetful about our conversations over the last several days, I doubt that is new. She denies cardiovascular symptoms including chest pain, shortness of breath or palpitations. Physical Exam Physical Exam: Constitutional: Alert, cooperative and in no distress. She is laying in her bed. HEENT: Unremarkable Neck: No jugular venous distention, carotid pulses are normal and equal bilaterally without bruits. Pulmonary: Clear to auscultation bilaterally. Cardiac: Regular rhythm with no murmur, gallop or rub. Abdomen: Soft, nontender with normal bowel sounds. Extremities: No edema. Neurologic: No focal findings. Gait was not tested. Skin: No rash or petechiae. Results & Data Vital Signs (Past 12 Hours) Vital Signs Temp Pulse Pulse Resp BP Pulse Ox O2 Del Method 09/09/25 10:59 36.6 C 67 H 126/68 95 Room Air 09/09/25 08:35 Room Air 09/09/25 07:48 78 09/09/25 07:35 36.9 C 80 23 132/70 94 Room Air 09/09/25 03:23 36.6 C 76 18 131/75 93 Room Air Laboratory Results Intake and Output 09/08/25 09/09/25 09/09/25 22:59 06:59 14:59 Intake Total 120 / 360 0 / 360 Output Total Balance 120 / 359 -1 / 359 Intake: Oral 120 / 360 0 / 360 Output: # Bowel Movements Other: Weight 57.7 kg Weight Measurement Method Built in [facility] Diagnostic Findings Telemetry: Sinus rhythm, mostly in the 80s PG Care Time/CCT Total # of Minutes Spent Total Time Spent with Patient: Total time spent is greater than 50% in coordination of care (as documented) at patient's floor/unit and/or counseling patient: Coding Level of Care Code 14485 SUB INP/OBS CARE 2/35MIN Diagnoses Elevated troponin R79.89 Tachycardia R00.0 Borderline hypertension R03.0 Fall W19.XXXA Encounter type: initial encounter (4) Fall Encounter type: initial encounter Qualified Code(s): W19.XXXA - Unspecified fall, initial encounter
--- NOTE | 2025-09-09 13:40 | Hospitalist Progress Note ---
Date of Service September 09, 2025 Assessment & Plan (1) NSTEMI (non-ST elevated myocardial infarction): (2) Fall: (3) Weakness: (4) Closed fracture of proximal end of right humerus: Plan Plan Patient is an 85-year-old female with a past medical history of recurrent falls, HTN, HLD, chronic venous insufficiency. Patient had a fall resulting in a right humerus fracture that is being managed conservatively. Pt transported by EMS to ER, Diagnostic imaging revealed questionable acute fracture of the right humerus. The patient was found to have an initial troponin of 249.3 which up trended to 3000, now downward trend. Patient denies any cardiac symptoms/chest pain. EKG without ischemic changes - admitting for NSTEMI no planned intervention per cardiology. #NSTEMI - patient without any cardiac sx, EKG without ischemic changes. Troponin elevated has now peaked and receded - Treated temporarily with heparin drip. - Troponin maximum was 3066 now downtrending to 1674. Low-dose metoprolol has been added to her medication regimen - repeat echocardiogram preserved ejection fraction no regional wall motion abnormalities - EKG done today, September 09, remains unremarkable - cardiology consulted recommend aspirin consider statin and multiday event monitor after discharge #Recurrent falls/ambulatory dysfunction/right humerus fracture s/p fall 08/26 resulting in right humerus fracture, recurrent fall 09/06 due to "leg shakiness", possibly 2/2 NSTEMI above. Diagnostic imaging revealed acute humerus fracture however likely the residual fracture from 08/26 as pain is unchanged. is following with [place] [facility]ics with conservative management for humerus fracture Continue as needed Tylenol Lidoderm patch ordered PT/OT consulted given recurrent falls recommends rehab postdischarge Patient feels a large part of her leg shakiness is anxiety will begin low-dose Zoloft therapy after education of discussion about medication and side effects #chronic venous insufficiencyfollows with vascular surgery, conservative management at this time. Patient reports she does not often take as needed Lasix. Will hold as needed Lasix at this time Continue with teds, promote leg elevation VTE ppx: Subcu hep Admission and Anticipated Discharge Date Admission Date: September 06, 2025 Subjective Alert and oriented. No distress. is at the bedside. Low-dose metoprolol has been added to her medication regimen due to the fact she had a NSTEMI. Repeat EKG is unremarkable. Troponin maximum was 3066 and is down trending now. Discharge to Center care is pending yet this week Review of Systems 2 Review of Systems: Constitutionalno fever or chills ENTno blurred vision, no double vision, no epistaxis, no sore throat Respiratoryno cough, no wheezing, no shortness of breath Cardiacno palpitations, no chest pain, no syncope Camille nausea, vomiting, diarrhea, melena, hematochezia GUno urinary retention, no urinary incontinence, no dysuria, no hematuria Musculoskeletalno joint pain, no muscle tenderness Skinno bruising, no rashes, no pruritus Neurono isolated weakness, no paresthesia, no weakness Psychno depression, no anxiety Physical Exam 2 Physical Exam: General-alert and oriented x3, no fever, no chills HEENT-head atraumatic and normocephalic, pupils equal and reactive to light, extraocular muscles intact Neck-no lymphadenopathy or thyromegaly, trachea midline Chest-clear to auscultation. No rales, wheezing or rhonchi Cardiac-regular rate and rhythm, normal S1 and S2 Abdomen-normal bowel sounds, no hepatosplenomegaly Extremities-no cyanosis, clubbing, or edema. Right arm is in a sling Neuro-cranial nerves II through XII intact, motor and sensory function within normal limits, strength symmetrical, no focal deficits Psych-normal affect, normal mood Results & Data Results & Data Vital Signs (Past 12 Hours) Vital Signs Temp Pulse Pulse Resp BP Pulse Ox O2 Del Method 09/09/25 10:59 36.6 C 67 H 126/68 95 Room Air 09/09/25 08:35 Room Air 09/09/25 07:48 78 09/09/25 07:35 36.9 C 80 23 132/70 94 Room Air 09/09/25 03:23 36.6 C 76 18 131/75 93 Room Air Laboratory Results 09/07/25 03:32 PG Care Time/CCT Total # of Minutes Spent Total Time Spent with Patient: Total time spent is greater than 50% in coordination of care (as documented) at patient's floor/unit and/or counseling patient: Coding Level of Care Code 20400 SUB INP/OBS CARE 2/35MIN Diagnoses NSTEMI (non-ST elevated myocardial infarction) I21.4 Fall W19.XXXA Encounter type: initial encounter Weakness R53.1 Closed fracture of proximal end of right humerus S42.201G Encounter type: subsequent encounter Fracture healing: with delayed healing Fracture morphology: unspecified fracture morphology (2) Fall Encounter type: initial encounter Qualified Code(s): W19.XXXA - Unspecified fall, initial encounter (4) Closed fracture of proximal end of right humerus Encounter type: subsequent encounter Fracture healing: with delayed healing Fracture morphology: unspecified fracture morphology Qualified Code(s): S 42.201G - Unspecified fracture of upper end of right humerus, subsequent encounter for fracture with delayed healing
[2025-09-10 00:15] LABS: Anion Gap 11.0 (3-11); Calcium 8.2 mg/dl (8.6-10.3); Carbon Dioxide 19.0 mmol/L (21-32); Chloride 109.0 mmol/L (98-107); Potassium 3.8 mmol/L (3.5-5.1); Sodium 139.0 mmol/L (136-145)
[2025-09-10 00:21] LABS: Blood Urea Nitrogen 16.0 mg/dl (6-23); Creatinine Clr Calc Pharmacy 53.2 ml/min; Glucose 85.0 mg/dl (70-99(Fasting))
[2025-09-10 06:23] LABS: Hematocrit (blood only) 33.3 % (37.0-47.0); Hemoglobin 11.5 g/dl (12.0-16.0); Immature Granulocytes # (auto) 0.01 K/uL (0.01-0.20); Immature Granulocytes % (auto) 0.2 %; Mean Corpuscular Hemoglobin 31.6 pg (25.0-34.0); Mean Corpuscular Volume 91.5 fL (80.0-100.0); Platelet Count 235 K/uL (130-400); RDW Standard Deviation 43.1 fL (36.4-46.3); Red Blood Count 3.64 M/uL (4.20-5.40); White Blood Count 5.42 K/ul (4.8-10.8)
[2025-09-10 06:45] LABS: Anion Gap 9.0 (3-11); Blood Urea Nitrogen 16.0 mg/dl (6-23); Calcium 8.2 mg/dl (8.6-10.3); Carbon Dioxide 21.0 mmol/L (21-32); Chloride 110.0 mmol/L (98-107); Creatinine Clr Calc Pharmacy 57.8 ml/min; Glucose 89.0 mg/dl (70-99(Fasting)); Potassium 3.5 mmol/L (3.5-5.1); Sodium 140.0 mmol/L (136-145)
--- NOTE | 2025-09-10 11:36 | Cardiology Progress Note ---
Date of Service September 10, 2025 Assessment & Plan (1) Elevated troponin: (2) Tachycardia: (3) Borderline hypertension: (4) Fall: Plan 1. Elevated troponin: Her troponin elevation is worrisome and the trend is suggestive of an acute coronary event, the level fluctuated somewhat but is now clearly dropping. However she is asymptomatic, the electrocardiogram does not show ischemia and her echo does not show a significant wall motion abnormality. Options include no further cardiac evaluation despite the likelihood that she has coronary artery disease (this is not unreasonable considering that she does not have symptoms and invasive treatment has only been demonstrated to be beneficial for symptom relief except in certain relatively infrequent occasions) in which case I would recommend treating her for coronary disease with medical therapy or further testing such as stress testing to see if she has identifiable ischemia. We feel the best option is to treat her for ischemia and also potentially look for an arrhythmia as a cause of her troponin elevation. 2. Tachycardia: She was tachycardic on presentation but it appears to be sinus tachycardia secondary to her fall, not an abnormal rhythm. Her heart rate has dropped back to normal. She is not on any outpatient medications to control heart rate therefore I think this tachycardia is appropriate not abnormal. It is possible we missed a significant arrhythmia however, it is possible an arrhythmia is causing her falls and potentially the enzyme elevation. 3. Hypertension: Her blood pressure appears somewhat labile but has for the most part been acceptable. 4. Fall: She describes mechanical falls, I think it is conceivable that she has an arrhythmia (which could be tachycardia such as atrial fibrillation or bradycardia such as heart block or pauses) causing both the falling and potentially the troponin elevation. I would plan on a 30-day outpatient monitor. I believe she is being sent to a rehab facility but they would not have monitoring but I think she could wear a monitor in the facility. I believe she has a bed for tomorrow, we will arrange to have the monitor applied tomorrow morning before she goes. Admission and Anticipated Discharge Date Admission Date: September 06, 2025 Subjective She is feeling well today, she is conversational and her is at her bedside. She seems anxious to go to rehab. Physical Exam Physical Exam: Constitutional: Alert, cooperative and in no distress. She is laying in her bed. HEENT: Unremarkable Neck: No jugular venous distention, carotid pulses are normal and equal bilaterally without bruits. Pulmonary: Clear to auscultation bilaterally. Cardiac: Regular rhythm with no murmur, gallop or rub. Abdomen: Soft, nontender with normal bowel sounds. Extremities: No edema. Neurologic: No focal findings. Gait was not tested. Skin: No rash or petechiae. Results & Data Vital Signs (Past 12 Hours) Vital Signs Temp Pulse Resp BP Pulse Ox O2 Del Method 09/10/25 10:46 36.9 C 61 18 119/65 96 Room Air 09/10/25 07:25 Room Air 09/10/25 03:30 75 18 125/81 96 Room Air Laboratory Results CBC 09/10/25 Range/Units 05:40 WBC 5.42 (4.8-10.8) K/ul RBC 3.64 L (4.20-5.40) M/uL Hgb 11.5 L (12.0-16.0) g/dl Hct 33.3 L (37.0-47.0) % Plt Count 235 (130-400) K/uL Neut # (Auto) 3.33 (1.40-6.50) K/uL Lymph # (Auto) 1.53 (1.20-3.40) K/uL Granite # (Auto) 0.40 (0.11-0.59) K/uL Eos # (Auto) 0.10 (0.00-0.50) K/uL Baso # (Auto) 0.05 (0.00-0.20) K/uL Comprehensive Metabolic Panel 09/09/25 09/10/25 Range/Units 05:47 05:40 Sodium 139 140 (136-145) mmol/L Potassium 3.8 3.5 (3.5-5.1) mmol/L Chloride 109 H 110 H (98-107) mmol/L Carbon Dioxide 19 L 21 (21-32) mmol/L BUN 16 16 (6-23) mg/dl Creatinine 0.62 0.57 L (0.6-1.2) mg/dl Glucose 85 89 (70-99(Fasting)) mg/dl Calcium 8.2 L 8.2 L (8.6-10.3) mg/dl Intake and Output 09/09/25 09/10/25 09/10/25 22:59 06:59 14:59 Intake Total 120 / 595 360 / 360 Output Total 301 / 302 Balance -181 / 293 360 / 360 Intake: Oral 120 / 595 360 / 360 Output: Urine Amount (Catheter) 300 / 300 External 300 / 300 # Bowel Movements 1 / 2 Other: # Unmeasured Voids 2 2 1 # Bowel Movement Diapers 1 Weight 57.7 kg Diagnostic Findings Telemetry: Sinus rhythm, rate 70 to 90 bpm. PG Care Time/CCT Total # of Minutes Spent Total Time Spent with Patient: Total time spent is greater than 50% in coordination of care (as documented) at patient's floor/unit and/or counseling patient: Coding Level of Care Code 46938 SUB INP/OBS CARE 2/35MIN Diagnoses Elevated troponin R79.89 Tachycardia R00.0 Borderline hypertension R03.0 Fall W19.XXXA Encounter type: initial encounter (4) Fall Encounter type: initial encounter Qualified Code(s): W19.XXXA - Unspecified fall, initial encounter
[2025-09-10] MEDS: LORazepam 0.5 MG TAB PO PRN (13:36)
--- NOTE | 2025-09-10 14:32 | Hospitalist Progress Note ---
Date of Service September 10, 2025 Assessment & Plan (1) NSTEMI (non-ST elevated myocardial infarction): (2) Fall: (3) Weakness: (4) Closed fracture of proximal end of right humerus: Plan Plan Patient is an 85-year-old female with a past medical history of recurrent falls, HTN, HLD, chronic venous insufficiency. Patient had a fall resulting in a right humerus fracture that is being managed conservatively. Pt transported by EMS to ER, Diagnostic imaging revealed questionable acute fracture of the right humerus. The patient was found to have an initial troponin of 249.3 which up trended to 3000, now downward trend. Patient denies any cardiac symptoms/chest pain. EKG without ischemic changes - admitting for NSTEMI no planned intervention per cardiology. #NSTEMI - patient without any cardiac sx, EKG without ischemic changes. Troponin elevated has now peaked and receded - Treated temporarily with heparin drip. - Troponin maximum was 3066 now downtrending to 1674. Low-dose metoprolol has been added to her medication regimen - repeat echocardiogram preserved ejection fraction no regional wall motion abnormalities - EKG done on September 09 remains unremarkable - cardiology consulted and they recommend aspirin therapy. Consider statin and multiday event monitor after discharge #Recurrent falls/ambulatory dysfunction/right humerus fracture s/p fall 08/26 resulting in right humerus fracture, recurrent fall 09/06 due to "leg shakiness", possibly 2/2 NSTEMI above. Diagnostic imaging revealed acute humerus fracture however likely the residual fracture from 08/26 as pain is unchanged. is following with [place] [facility] with conservative management for humerus fracture Continue as needed Tylenol Lidoderm patch ordered PT/OT consulted given recurrent falls recommends rehab postdischarge Patient feels a large part of her leg shakiness is anxiety. Lorazepam as needed ordered. #chronic venous insufficiencyfollows with vascular surgery, conservative management at this time. Patient reports she does not often take as needed Lasix. Will hold as needed Lasix at this time Continue with teds, promote leg elevation VTE ppx: Subcu hep Admission and Anticipated Discharge Date Admission Date: September 06, 2025 Subjective Alert and oriented. No distress. is at the bedside. Nurses state that as of this morning she has not received any as needed lorazepam. Review of Systems 2 Review of Systems: Constitutionalno fever or chills ENTno blurred vision, no double vision, no epistaxis, no sore throat Respiratoryno cough, no wheezing, no shortness of breath Cardiacno palpitations, no chest pain, no syncope Camille nausea, vomiting, diarrhea, melena, hematochezia GUno urinary retention, no urinary incontinence, no dysuria, no hematuria Musculoskeletalno joint pain, no muscle tenderness Skinno bruising, no rashes, no pruritus Neurono isolated weakness, no paresthesia, no weakness Psychno depression, no anxiety Physical Exam 2 Physical Exam: General-alert and oriented x3, no fever, no chills HEENT-head atraumatic and normocephalic, pupils equal and reactive to light, extraocular muscles intact Neck-no lymphadenopathy or thyromegaly, trachea midline Chest-clear to auscultation. No rales, wheezing or rhonchi Cardiac-regular rate and rhythm, normal S1 and S2 Abdomen-normal bowel sounds, no hepatosplenomegaly Extremities-no cyanosis, clubbing, or edema. Right arm is in a sling Neuro-cranial nerves II through XII intact, motor and sensory function within normal limits, strength symmetrical, no focal deficits Psych-normal affect, normal mood Results & Data Results & Data Vital Signs (Past 12 Hours) Vital Signs Temp Pulse Resp BP Pulse Ox O2 Del Method 09/10/25 10:46 36.9 C 61 18 119/65 96 Room Air 09/10/25 07:25 Room Air 09/10/25 03:30 75 18 125/81 96 Room Air Laboratory Results 09/10/25 05:40 09/10/25 05:40 PG Care Time/CCT Total # of Minutes Spent Total Time Spent with Patient: Total time spent is greater than 50% in coordination of care (as documented) at patient's floor/unit and/or counseling patient: Coding Level of Care Code 41122 SUB INP/OBS CARE 2/35MIN Diagnoses NSTEMI (non-ST elevated myocardial infarction) I21.4 Fall W19.XXXA Encounter type: initial encounter Weakness R53.1 Closed fracture of proximal end of right humerus S42.201G Encounter type: subsequent encounter Fracture healing: with delayed healing Fracture morphology: unspecified fracture morphology (2) Fall Encounter type: initial encounter Qualified Code(s): W19.XXXA - Unspecified fall, initial encounter (4) Closed fracture of proximal end of right humerus Encounter type: subsequent encounter Fracture healing: with delayed healing Fracture morphology: unspecified fracture morphology Qualified Code(s): S 42.201G - Unspecified fracture of upper end of right humerus, subsequent encounter for fracture with delayed healing
--- NOTE | 2025-09-10 16:15 | CT Scan Report ---
CT SCAN OF THE BRAIN WITHOUT IV CONTRAST CLINICAL HISTORY: Recent head injury. Memory loss. COMPARISON STUDY: None. TECHNIQUE: Unenhanced axial CT scan of the brain was performed from the vertex to the skull base. A dose lowering technique was utilized adhering to the principles of ALARA. CT DOSE: 625.8 mGy.cm FINDINGS: Brain parenchyma: No acute intracranial hemorrhage, midline shift or mass effect is present. Cotto-whi te matter differentiation is preserved. There are no extra-axial fluid collections. There are no find ings to suggest acute dural sinus thrombosis or acute territorial infarct. White matter hypodensity s uggests small vessel disease. Ventricles, sulci, cisterns: There is no hydrocephalus. Cavum septum pellucidum is incidentally noted . The basal cisterns are patent. Calvarium: There are no calvarial fractures. Sinuses and mastoids: There is mild sinus mucosal thickening. The mastoid air cells are well pneumati zed. Orbits: The bony orbits are grossly intact. IMPRESSION: 1. No acute intracranial findings. 2. No calvarial fractures. ACT 112: Negative or not required by law. Electronically signed by: Shyam Parker M.D. 09/10/2025 4:14 PM
[2025-09-11 06:29] LABS: Hematocrit (blood only) 36.8 % (37.0-47.0); Hemoglobin 12.2 g/dl (12.0-16.0); Immature Granulocytes # (auto) 0.02 K/uL (0.01-0.20); Immature Granulocytes % (auto) 0.3 %; Mean Corpuscular Hemoglobin 30.3 pg (25.0-34.0); Mean Corpuscular Volume 91.3 fL (80.0-100.0); Platelet Count 238 K/uL (130-400); RDW Standard Deviation 43.9 fL (36.4-46.3); Red Blood Count 4.03 M/uL (4.20-5.40); White Blood Count 6.82 K/ul (4.8-10.8)
[2025-09-11 06:49] LABS: Anion Gap 7.0 (3-11); Blood Urea Nitrogen 13.0 mg/dl (6-23); Calcium 8.2 mg/dl (8.6-10.3); Carbon Dioxide 24.0 mmol/L (21-32); Chloride 108.0 mmol/L (98-107); Creatinine Clr Calc Pharmacy 61.1 ml/min; Glucose 86.0 mg/dl (70-99(Fasting)); Potassium 3.5 mmol/L (3.5-5.1); Sodium 139.0 mmol/L (136-145)
[2025-09-11 11:15] VITALS: BP 119/57; RESP 17; TEMP 97.7; O2SAT 98
--- NOTE | 2025-09-11 12:16 | Discharge Summary ---
Discharge Summary Date of Service September 11, 2025 Principal Dx & Hospital Course #1 = Principal Diagnosis (1) NSTEMI (non-ST elevated myocardial infarction): (2) Fall: (3) Weakness: (4) Closed fracture of proximal end of right humerus: Plan Plan Patient is an 85-year-old female with a past medical history of recurrent falls, HTN, HLD, chronic venous insufficiency. Patient had a fall resulting in a right humerus fracture that is being managed conservatively. Pt transported by EMS to ER, Diagnostic imaging revealed questionable acute fracture of the right humerus. The patient was found to have an initial troponin of 249.3 which up trended to 3000, now downward trend. Patient denies any cardiac symptoms/chest pain. EKG without ischemic changes - admitting for NSTEMI no planned intervention per ca rdiology. #NSTEMI - patient without any cardiac sx, EKG without ischemic changes. Troponin elevated has now peaked and receded - Treated temporarily with heparin drip. - Troponin maximum was 3066 now downtrending to 1674. Low-dose metoprolol has been added to her medication regimen - repeat echocardiogram preserved ejection fraction no regional wall motion abnormalities - EKG done on September 09 remains unremarkable - cardiology consulted and they recommend aspirin therapy. 30-day event monitor after discharge #Recurrent falls/ambulatory dysfunction/right humerus fracture s/p fall 08/26 resulting in right humerus fracture, recurrent fall 09/06 due to "leg shakiness", possibly 2/2 NSTEMI above. Diagnostic imaging revealed acute h umerus fracture however likely the residual fracture from 08/26 as pain is unchanged. is following with [place] [facility] with conservative management for humerus fracture Continue as needed Tylenol Lidoderm patch ordered PT/OT consulted given recurrent falls recommends rehab postdischarge Patient feels a large part of her leg shakiness is anxiety. Lorazepam as needed ordered. #chronic venous insufficiencyfollows with vascular surgery, conservative management at this time. Patient reports she does not often take as needed Lasix. Will hold as needed Lasix at this time Continue with teds, promote leg elevation VTE ppx: Subcu hep Admission HPI Per Admitting Provider Patient is an 85-year-old female with a past medical history of recurrent falls, HTN, HLD, chronic venous insufficiency. Patient had a fall resulting in a right humerus fracture that is being managed conservatively. Patient had like shakiness 09/06 and had a recurrent fall falling to her knees. She was unable to get up and called EMS. Diagnostic imaging revealed questionable acute fracture of the right humerus, CT imaging is recommended - however suspect this is the new fx from 08/26. However patient was found to have an initial troponin of 249.3 which up trended to 1885.5. Patient denies any cardiac symptoms. Patient seen at bedside. She endorses the above. She stated she was prescribed oxycodone 5 mg every 6 hours after the first fall which she took 2 of did not like how it made her feel so she quit taking it. She has not taken this in several days. She has been managing her pain with Tylenol (uknown dose) and the sling. Today her legs got shaky which has been happening for several days when she felt as though her legs gave out. She fell onto her knees, denies any loss of consciousness, head strike, or anticoagulation use. She could not get up and she may have strained her shoulder trying to push herself. She stated her pain is at baseline. She stated because she has been unable to ambulate well, her lower extremity edema has acutely worsened however she rarely takes her as needed Lasix. Regarding her elevated troponin, patient denies any chest pain or shortness of breath at the time of the fall. She denies any chest pain, dy spnea, lightheadedness/dizziness, fatigue on exertion or at rest recently. She stated her only home medication she really takes is Tylenol and some supplements. She wishes to be full code. Discussed elevated troponin and likely need to initiate heparin drip, patient agreeable. Discharge Plan Discharge Items Patient Disposition: Transfer Group Home Fac Reason For Visit: NSTEMI, FALL, AMBULATORY DYSFUNCTION Discharge Diagnosis: NSTEMI, right humerus fracture Condition on Discharge: Good Activity: As commented below Activity Comment: No weightbearing on the right arm until cleared by orthopedics Non-emergency contact: Primary Care Provider Call non-emergency contact if: you have any medication questions and your symptoms worsen Follow-up/Referrals: Channing Leggett DO [Primary Care Provider] - Diet: Regular and Heart Healthy Addtl Attending Provider Instructions: See primary care provider and operating engineer apprentice as soon as possible after discharge from [facility] care Pending Studies at Discharge: No Stand-Alone Forms: My [facility] Skilled Items Patient informed of condition?: Yes DNR: Yes Discharge Level of Care: Skilled Communicable Disease: No Discharge Prognosis: Stable Lines: None Urinary Catheter: No Medications and DC Order Prescriptions: New metoprolol tartrate 25 mg Tablet 25 mg PO BID Qty: 30 0RF docusate sodium 100 mg Capsule 100 mg PO BID Qty: 30 0RF sertraline 50 mg Tablet 25 mg PO HS Qty: 15 0RF lidocaine 5 % Adhesive Patch,Medicated 1 patch transdermal QAM Qty: 10 0RF acetaminophen 325 mg Tablet 650 mg PO Q4H PRN (Reason: fever) Qty: 0 0RF aspirin 81 mg Tablet,Delayed Release (Dr/Ec) 81 mg PO QAM Qty: 0 0RF Continued furosemide [Lasix] 20 mg tablet 20 mg PO DAILY PRN (Reason: LE edema) Qty: 30 2RF calcium carbonate-vitamin D3 600 mg-20 mcg (800 unit) tablet 2 tab PO QAM coenzyme Q10 [Co Q-10] 100 mg capsule 100 mg PO DAILY garlic 300 mg capsule 300 mg PO DAILY potassium chloride 20 mEq packet 20 meq PO DAILY acetaminophen [Tylenol Extra Strength] 500 mg Tablet 1,000 mg PO TID MDD 3G PRN (Reason: pain) Qty: 1 0RF salmon oil-omega-3 fatty acids 1,000-210 mg Capsule 1 cap PO DAILY Macular Health Formula 1 cap PO DAILY Discharge Orders: Discharge Order (Routine); Ordered 09/11/25 Ordered By: Mg Downey Admission Data Admit Date/Time: 09/06/25 21:24 Attending Provider: Mg Downey Admit Provider: Sky Oneil Primary Care Provider: Channing Leggett Other Providers: Sky Oneil; Keith Gutiérrez; [facility] Hospital Stay Data Consultations 09/06/25 19:25 ED Decision to Admit Stat 09/06/25 23:36 Consult Cardiology Routine Diagnostic Imagining Performed 09/10/25 14:[address] [CT head/brain wo con] Urgent Pending Results Patient Have Any Pending Studies at Discharge: No Discharge Instructions Given to Patient (Per Discharging Provider) See primary care provider and operating engineer apprentice as soon as possible after discharge from Center care Total Time Total Time Spent Total Time Spent (In Minutes): 50 minutes Coding Level of Care Code 14211 INP/OBS DISCH >30 MIN Diagnoses NSTEMI (non-ST elevated myocardial infarction) I21.4 Fall W19.XXXA Encounter type: initial encounter Weakness R53.1 Closed fracture of proximal end of right humerus S42.201G Encounter type: subsequent encounter Fracture healing: with delayed healing Fracture morphology: unspecified fracture morphology
[2025-09-11 13:09] VITALS: PULSE 77
--- NOTE | 2025-09-14 06:04 | Electrocardiogram Report ---
Test Reason : Blood Pressure : */* mmHG Vent. Rate : 90 BPM Atrial Rate : 90 BPM P-R Int : 164 ms QRS Dur : 94 ms QT Int : 338 ms P-R-T Axes : 113 120 134 degrees QTcB Int : 413 ms Normal sinus rhythm Right axis deviation Low voltage QRS Anterior infarct (cited on or before 09-Sep-2025) T wave abnormality, consider lateral ischemia Abnormal ECG When compared with ECG of 09-Sep-2025 08:03, (unconfirmed) No significant change Confirmed by Mayank Larios ([id number]) on 09/14/2025 6:03:57 AM Referred By: REFERRED SELF Confirmed By: Mayank Larios
== END 2025-09-11 13:51 | DRG 282 ==
LOC: ED 16:46 → SUATTDRO 21:24 → 2E 21:24